=== PATIENT | female | born 1965 | race Caucasian/White ===

== ENCOUNTER 2024-04-20 23:29 | Inpatient (IN) | payer OTHER, SELFPAY ==
[2024-04-20 20:03] VITALS: BP 112/91
[2024-04-20 20:44] LABS: % Basophils 0.9 % (0-2); % Eosinophils 1.6 % (0-6); % Immature Granulocytes 0.3 % (0-0.5); % Lymphocytes 19.7 % (20.5-51.1); % Monocytes 5.8 % (1.7-9.3); % Neutrophils 71.7 % (42.2-75.2); Absolute Basophils 0.1 10^3/uL (0-0.2); Absolute Eosinophils 0.2 10^3/uL (0-0.7); Absolute Lymphocytes 1.8 10^3/uL (1.2-3.4); Absolute Monocytes 0.5 10^3/uL (0.1-0.6); Absolute Neutrophils 6.6 10^3/uL (1.4-6.5); Hematocrit 37.3 % (37.0-47.0); Hemoglobin 13.6 g/dL (12.0-16.0); Mean Corp Hgb Conc. 36.5 g/dL (33.0-37.0); Mean Corpuscular Hgb 30.4 pg (27.0-31.0); Mean Corpuscular Volume 83.3 fL (81.0-99.0); Mean Platelet Volume 9.6 fL (7.4-10.4); Nucleated Red Blood Cells % 0 %; Platelet Count 403 10^3/uL (130-400); Red Blood Cell Count 4.48 10^6/uL (4.20-5.40); Red Cell Dist. Width 12.3 % (11.5-14.5); White Blood Cell Count 9.1 10^3/uL (4.8-10.8)
[2024-04-20 20:56] LABS: ALT (SGPT) 23 U/L (0-35); AST (SGOT) 36 U/L (14-36); Albumin 4.3 g/dl (3.5-5.0); Alkaline Phosphatase 81 U/L (38-126); Blood Urea Nitrogen 7 mg/dl (7-17); Calcium 10.2 mg/dl (8.4-10.2); Carbon Dioxide 15 mmol/L (22-30); Chloride 108 mmol/L (98-107); Glucose 117 mg/dl (70-99); Potassium 3.3 mmol/L (3.5-5.1); Sodium 138 mmol/L (135-145); Total Bilirubin 0.6 mg/dl (0.2-1.3); Total Protein 6.8 g/dl (6.3-8.2); eGFR > 60.00
[2024-04-20 20:57] LABS: Lipase 190 U/L (23-300)
[2024-04-20] MEDS: ZOFRAN 4 MG IV (21:07)
[2024-04-20] MEDS: DILAUDID 0.5 MG IV ×2 (21:10→21:36)
[2024-04-20 21:21] VITALS: BP 162/98
[2024-04-20] MEDS: NSS 500 IV (21:39)
[2024-04-20 22:05] VITALS: BP 128/78
--- NOTE | 2024-04-20 22:13 | ED.GENMED ---
History of Present Illness
General
Chief Complaint: Abdominal Symptoms
Source: patient
Exam Limitations: none
Time Seen by Provider: 04/20/24 20:57
Nursing documentation reviewed up to this point in time: agreed with
History of Present Illness
History of Present Illness:
Patient status post cholecystectomy 5 days ago, with subsequent placement of LUÍS drain, presents to ED secondary to sudden onset of recurrent upper abdominal pain, shortly prior to arrival. Patient was discharged home 2 days ago. Patient was
driving down to [place] from [place] where she had surgery, when she developed abdominal pain, approximate 2 hours into her trip. Patient reports multiple vomiting episodes with pain. Denies fever or chills. Denies trauma. Denies diarrhea.
Review of Systems
Review of Systems
Allergies reviewed?: Yes
All Other Systems: ROS reviewed and negative except as documented in HPI and ROS
Constitutional: Reports no symptoms; Denies fever
Respiratory: Reports no symptoms
Cardiac: Reports no symptoms
ABD/GI: Reports abdominal pain, nausea and vomiting; Denies diarrhea
Musculoskeletal: Reports no symptoms
Skin: Reports no symptoms
Neurological: Reports no symptoms
Phy Exam
Physical Exam
Physical Exam:
Physical Exam
General: moderate painful distress, not acutely ill. afebrile
Head: nc/at. eomi
Neck: supple. no meningeal signs.
Heart: s1/s2 regular rate and rhythm, no murmur. equal radial pulses.
Lungs: no acute respiratory distress. clear bilaterally
Abdomen: normal bowel sounds. multiple well healing surgical scars noted with drain in place over RUQ. mild diffuse abdominal tenderness without distention
Neuro: alert and oriented. no focal neurological deficits
Skin: no rash
Psychiatric: well kept. interactive and cooperative
Extremities: no edema. no calf tenderness.
Course
Orders/Labs/Results
Orders:
Orders
04/20/24 20:09
Urinalysis Reflex To Culture Urgent
Date Specimen was Collected: 04/20/24
Time Specimen was Collected: 20:09
04/20/24 20:13
Complete Blood Count/With Diff Urgent
Comprehensive Metabolic Panel Urgent
Lipase Urgent
04/20/24 20:58
Ondansetron Injectable [Zofran] 4 mg .ROUTE .STK-MED ONE
04/20/24 21:06
Ondansetron Injectable [Zofran] 4 mg IV NOW STA
04/20/24 21:08
HYDROmorphone [Dilaudid] 0.5 mg .ROUTE .STK-MED ONE
04/20/24 21:09
HYDROmorphone [Dilaudid] 0.5 mg IV NOW STA
04/20/24 21:15
CT Abd/pelvis W Iv Cont Urgent
Comment:
Reason For Exam: abdominal pain, s/p cholecystectomy
0.9% Sodium Chloride 500 ml [Nss] 500 ml IV BOLUS
04/20/24 21:35
HYDROmorphone [Dilaudid] 0.5 mg .ROUTE .STK-MED ONE
04/20/24 21:36
HYDROmorphone [Dilaudid] 0.5 mg IV NOW STA
04/20/24 22:45
0.9% Sodium Chloride 1000 ml [Nss] 1,000 ml IV BOLUS
04/20/24 23:00
0.9% Sodium Chloride 500 ml [Nss] 500 ml IV 100 mls/hr
Flush (0.9% Sodium Chloride) [Flush (Nss)] See Dose Instructions IV PER PROTOCOL
04/20/24 23:15
Admit/Transfer Patient As Directed
Co-Sign Provider:
Level of Care: Inpatient admission
Assign to:: Medical/Surgical
Physician / Group: [email or web address]
Diagnosis: Small bowel enteritis associated with partial obstruction vs. post op ileus
Reason for Hospitalization: Small bowel enteritis associated with partial obstruction vbs. post op ileus
Expected length of stay greater than two midnights?: Yes
ELOS- Estimated Length of Stay in days: 3
I certify the patient meets the requirements for IP care: Yes
04/20/24 23:17
Code Status As Directed
Resuscitation Status: Full Code
04/21/24 01:11
0.9% Sodium Chloride 1000 ml [Nss] 1,000 ml IV 100 mls/hr
Albuterol [ProAIR HFA INHALER] 2 puff INH R Q4 PRN
Bisacodyl [Dulcolax] 10 mg RECTAL [id number] PRN
Docusate W/Senna [Senokot-S] 1 tablet PO BIDPRN PRN
HYDROmorphone [Dilaudid] 0.5 mg IV Q4HPRN PRN
Ondansetron Injectable [Zofran] 4 mg IV Q6HPRN PRN
Polyethylene Glycol Powder [Miralax] 17 grams PO DAILYPRN PRN
04/21/24 01:11
Consult Notification Routine
Specialty to Notify: Surgical
SURGICAL CONSULT Routine
Consulting Provider: Loc Marie
Was physician already notified: No
Reason for consult: Small bowel enteritis associated with partial obstruction vs. post op ileus
Activity As Directed
Activity Level: With Assistance
Intake/ Output As Directed
Frequency: Per unit guidelines
Vital Signs As Directed
Frequency: Per unit guidelines
Weight As Directed
Frequency: Daily
DX Deep Vein Thrombosis Video Routine
04/21/24 Breakfast
NPO
Allow oral meds: No
Allow clear liquids: No
NPO with Ice Chips: Yes
Complete Blood Count/No Diff IN AM
Comprehensive Metabolic Panel IN AM
Lipase IN AM
Magnesium IN AM
04/21/24 08:00
Fluticasone/Salmeterol 115/21 [Advair Hfa 115/21 Mcg Inhaler] 2 puff INH R BID
Heparin 5,000 units SC Q12
Abnormal Lab Results
04/20/24
20:13
Plt Count 403 H 10^3/uL
(130-400)
Absolute Neuts (auto) 6.6 H 10^3/uL
(1.4-6.5)
Lymphocytes % 19.7 L %
(20.5-51.1)
Potassium 3.3 L mmol/L
(3.5-5.1)
Chloride 108 H mmol/L
(98-107)
Carbon Dioxide 15 L mmol/L
(22-30)
Glucose 117 H mg/dl
(70-99)
04/20/24 20:13
04/20/24 20:13
Vital Signs
Initial and Last Documented VS:
Initial Vital Signs
Temp Pulse Resp BP Pulse Ox
97.9 F 95 21 112/91 100
04/20/24 20:03 04/20/24 20:03 04/20/24 20:03 04/20/24 20:03 04/20/24 20:03
Last Documented Vital Signs
Temp Pulse Resp BP Pulse Ox
98.6 F 88 18 125/76 98
04/21/24 00:45 04/21/24 00:45 04/21/24 00:45 04/21/24 00:45 04/21/24 00:45
MDM/Problems Addressed
MDM/Problems Addressed:
CT abdomen pelvis report reviewed, concerning for enteritis versus partial bowel obstruction. As patient is continuing to experience symptoms, patient will be admitted for pain control and IV fluids. No indication for NG tube at this time.
*Critical Care Note
Total Time (30-74mins, 75-104mins- exclusive of procedures): Not Applicable
ED Attending Note
-
Portions of this chart may have been created with voice recognition software.� Occasional wrong word or��sound alike� substitutions may have occurred due to the inherent limitations of voice recognition software.
Discharge Plan
Departure
Patient Disposition: Admit
Date of Disposition: 04/20/24
Time of Disposition: 22:46
Presentation/result/management discussed w/ accepting MD/DO: Hospitalist
Discharge Problem:
Abdominal pain
Interventions
Interventions:
*Risk Screen - Suicide Last Done: 04/20/24 20:03
*General Assessment Last Done: 04/20/24 20:03
*Neglect/Abuse Screening Last Done: 04/20/24 20:03
ED- Fall Risk Assessment Last Done: 04/21/24 00:49
*ED COVID-19 Vaccine History Last Done: 04/21/24 00:49
*Nursing Disposition Last Done: 04/21/24 00:49
ZJ-Gjtmex-Mmbqyyjdyr Assessment Last Done: 04/20/24 20:53
Discharge Date and Time
Discharge Date/Time: 04/21/24 00:50
[2024-04-20 23:00] VITALS: BP 107/80
[2024-04-20] MEDS: NSS 1000 IV (23:00)
--- NOTE | 2024-04-20 23:07 | HPS.HSE ---
Family Physician
-
Family Physician: * NONE
Chief Complaint
-
abdominal pain N/V POD 5 cholecystectomy
History of Present Illness
58M POD5 cholecystectomy ( 04/16/24) in [place] with subsequent placement of LUÍS drain.
Evaluation for abrupt onset of abdominal pain with severe N and multiple vomiting
Acute onset since 430pm
Last flatus or BM
last vomiting
No prior abdominal surgery
POD5 cholecystectomy ( 04/16/24) in [place] with subsequent placement of LUÍS drain for gangrenous calculus cholecystitis
Currently on Augmentin for 5 days
ROS
Denies fever or chills. Denies trauma. Denies diarrhea.
Of note:
Patient is visiting [place] for Mother 88 th BD and patient BD tomorrow
Medical History
Past Medical History
Past Medical History: Reports Asthma and Psychiatric (depression/anxiety )
Past Surgical History: Reports None
Social History
Tobacco: Non-smoker
Alcohol: None
Drug: None
Family History
Family History: Not pertinent
Allergies / Home Medications
Allergies reflects when Allergies were last updated in [facility].
Home Medications with original date entered in [facility]
Allergy/Medication List:
Allergies
Allergy/AdvReac Type Severity Reaction Status Date / Time
No Known Allergies Allergy Verified 04/20/24 20:55
Home Medications
albuterol sulfate 90 mcg/actuation aerosol inhaler 2 puff inhalation R Q4 PRN sob/wheezing 04/20/24
amoxicillin 875 mg-potassium clavulanate 125 mg tablet 1 tab PO Q12H 04/20/24
bisacodyl 5 mg tablet,delayed release (Laxative (bisacodyl)) 5 mg PO DAILY PRN constipation 04/20/24
bupropion HCl 300 mg 24 hr tablet, extended release 300 mg PO DAILY 04/20/24
cetirizine 10 mg tablet (Zyrtec) 10 mg PO DAILY 04/20/24
cholecalciferol (vitamin D3) 25 mcg (1,000 unit) tablet 25 mcg PO DAILY 04/20/24
estradiol 10 mcg vaginal tablet (Yuvafem) 10 mcg vaginal .2X WEEKLY 04/20/24
fluticasone 250 mcg-salmeterol 50 mcg/dose blistr powdr for inhalation 1 inh inhalation R BID 04/20/24
liothyronine 5 mcg tablet 5 mcg PO DAILY 04/20/24
multivitamin 1 tab PO DAILY 04/20/24
polyethylene glycol 3350 17 gram/dose oral powder 17 g PO DAILY 04/20/24
progesterone micronized 100 mg capsule 200 mg PO DAILY 04/20/24
semaglutide (weight loss) 2.4 mg/0.75 mL subcutaneous pen injector (Wegovy) 2.4 mg SC .WEEKLY *ON HOLD* 04/20/24
trazodone 50 mg tablet 50 mg PO HS 04/20/24
venlafaxine 75 mg capsule,extended release 24 hr 75 mg PO DAILY 04/20/24
Review of Systems
-
Constitutional: Reports No Symptoms
EENT: Reports No Symptoms
Respiratory: Reports No Symptoms
Cardiac: Reports No Symptoms
Abdomen/GI: Reports See HPI, Abdominal Pain, Nausea and Vomiting
: Reports No Symptoms
Musculoskeletal: Reports No Symptoms
Skin: Reports No Symptoms
Neurological: Reports No Symptoms
Endocrine: Reports No Symptoms
Hematologic/Lymphatic: Reports No Symptoms
Psych: Reports No Symptoms
Physical Exam
Vital Signs
Vital Signs
Temp Pulse Resp BP Pulse Ox
97.9 F 95 21 112/91 100
04/20/24 20:03 04/20/24 20:03 04/20/24 20:03 04/20/24 20:03 04/20/24 20:03
Physical Exam
General: Conversant and Appears in Distress (moderate abdominal pain ); No Appears Chronically Ill
HEENT: NormoCephalic and Anicteric
Respiratory: Clear; No Wheezes, Rales or Rhonchi
Cardiac: S1/S2 and Regular Rhythm; No Tachycardia or Murmur
Breast: Deferred by me
GI: Tender (Mild diffuse abdominal tenderness without distention) and Other (multiple well healing surgical scars noted with drain in place over RUQ. )
Rectal: Deferred by Provider
Genito-urinary: Deferred by me
Musculoskeletal: No Edema
Skin: Warm and Dry
Neuro: AO x 3
Psych: Calm
Laboratory Results
-
04/20/24 20:13
04/20/24 20:13
Laboratory Results
Total Bilirubin 0.6 mg/dl (0.2-1.3) 04/20/24 20:13
AST 36 U/L (14-36) 04/20/24 20:13
ALT 23 U/L (0-35) 04/20/24 20:13
Alkaline Phosphatase 81 U/L (38-126) 04/20/24 20:13
Lipase 190 U/L (23-300) 04/20/24 20:13
Data Reviewed
-
CT Scan: Report Reviewed by me
Lab Data: Labs Reviewed by me
Impression/Plan
-
Reviewed VS: afebrile HR 95 BP 112/91 POx 100
Data
Nl WCC
hgb 13.6
Plt 403
K 3.3
Cl 108
CO2 15
Cr 0.7
nl eGFR
nl LFTx
Pending UA
CT Abd/pelvis W Iv Cont:
1).There are mildly dilated loops of fluid-filled small bowel measuring up to 3.2 cm down to an area of small bowel wall thickening in the mid abdomen best seen on axial image 33, sagittal image 44 and coronal image 24. This may be a focal area of
small bowel enteritis associated with partial obstruction
2).There is cholecystectomy with a 3 x 1 cm fluid collection at the surgical bed which may be seroma or biloma
3). There is moderate ascites in the pelvis.
4). There is 2 cm hiatal hernia
5). Degenerative disc disease at L4-5
NO PRIOR admission
ASSESSMENT & PLAN
Small bowel enteritis associated with partial obstruction
Associated multiple vomiting and severe nausea and water diarrhea
POD5 cholecystectomy with a 3 x 1 cm fluid collection at the surgical bed which may be seroma or biloma
Unremarkable LFTs and Lipase
DDX: ANGELIQUE vs. C Diff diarrhea complicated with ileus vs. post op ileus
- NPO and IVF
- PRN narcotic analgesia
- switch to IV Unasyn in place of Augmentin
- GS consult
HX Asthma/ COPD
HX Depression/ anxiety
- Pending Rx reconciliation
Patient is visiting [place] for Mother 88 th BD and patient BD tomorrow
DVT Px: SQH
Code: full code
IP MS
[2024-04-21] VITALS: BP 113/60
--- NOTE | 2024-04-21 00:40 | PTCARENOTE ---
Pt admitted to 321 from ED. AAOx3, Ambulatory. VSS. Abdominal incisions DUNIA /closed with glue, R LUÍS drain site C/D/I. pt c/o /10 lower abdominal discomfort, but doesn't feel need for pain medicine. Plan of care discussed. Call pruitt within reach.
[2024-04-21 00:45] VITALS: BP 125/76; BMI 21.8
[2024-04-21] MEDS: NSS 1000 IV ×2 (01:19→12:54)
[2024-04-21] MEDS: UNASYN IV ×4 (01:27→20:24)
[2024-04-21 06:00] VITALS: BMI 21.8
[2024-04-21 06:48] LABS: Hematocrit 32.6 % (37.0-47.0); Hemoglobin 10.9 g/dL (12.0-16.0); Mean Corp Hgb Conc. 33.4 g/dL (33.0-37.0); Mean Corpuscular Hgb 30.4 pg (27.0-31.0); Mean Corpuscular Volume 90.8 fL (81.0-99.0); Red Blood Cell Count 3.59 10^6/uL (4.20-5.40); Red Cell Dist. Width 12.8 % (11.5-14.5); White Blood Cell Count 8.5 10^3/uL (4.8-10.8)
[2024-04-21] MEDS: HEPARIN 5000 UNITS SC ×2 (07:19→20:25)
[2024-04-21 07:27] LABS: ALT (SGPT) 16 U/L (0-35); AST (SGOT) 27 U/L (14-36); Alkaline Phosphatase 53 U/L (38-126); Blood Urea Nitrogen 6 mg/dl (7-17); Calcium 8.5 mg/dl (8.4-10.2); Carbon Dioxide 24 mmol/L (22-30); Chloride 111 mmol/L (98-107); Estimated Creatinine Clearance 89 ml/min; Glucose 98 mg/dl (70-99); Lipase 86 U/L (23-300); Potassium 4.1 mmol/L (3.5-5.1); Sodium 141 mmol/L (135-145); Total Bilirubin 0.4 mg/dl (0.2-1.3); Total Protein 5.3 g/dl (6.3-8.2); eGFR > 60.00
[2024-04-21 07:30] VITALS: BP 120/77
[2024-04-21] MEDS: ADVAIR HFA 115/21 MCG INHALER 2 PUFF INH ×2 (07:41→18:08)
[2024-04-21 07:48] LABS: Mean Platelet Volume 9.5 fL (7.4-10.4); Platelet Count 289 10^3/uL (130-400)
--- NOTE | 2024-04-21 09:09 | CON.GS ---
Addendum entered and electronically signed by Mark Neal MD 04/21/24 10:19:
Patient seen and examined with surgical nurse practitioner. Agree with documented history and physical.
HPI: 59-year-old female presenting with acute onset of abdominal pain, nausea vomiting followed by diarrhea. She recently underwent laparoscopic cholecystectomy 5 days ago. She was discharged home on the and at that time feeling well. While
traveling to [place] with her sister she had a chicken salad sandwich which shortly after resulted in crampy abdominal pain nausea vomiting and sweats. She came to the emergency department for evaluation. She feels better this a.m. Nausea
resolved. Appetite returning. She has had bowel movement this a.m. LUÍS remains in place and she says it has not changed in character.
AFVSS
ABD: Soft, nondistended, minimal tenderness at incision sites and right upper quadrant. No rebound rigidity or guarding. Surgical sites with glue dressings clean. LUÍS with light serosanguineous fluid. Nonpurulent and nonbilious.
Laboratory testing reviewed and white blood cell count is normal as well as platelet count. Chemistries are unremarkable including all of her liver function profile testing and lipase.
CT abdomen pelvis imaging personally reviewed. There is some free fluid around the lower abdomen and pelvis but no organizing fluid collections. Typical postoperative mild inflammatory changes around the surgical field. Surgical Gagandeep drain
within the abdominal cavity.
Assessment/plan: 59-year-old female with acute episode abdominal pain nausea vomiting chills after recent cholecystectomy.
No clinical or radiographic signs of bile leak. LUÍS drain is nonbilious and light serous fluid. No infectious signs or symptoms. Abdominal examination benign with minimal incisional tenderness within expectations of recent surgery. Clinically
resolving/resolved symptoms as well.
No further imaging or testing recommended at this time.
Would start on clear liquid diet and advance as tolerated to low-fat.
Probable discharge within 24 hours
Original Note:
Medical History
-
Chief Complaint: n/v
History of Present Illness:
Ms Sandoval is a 59 yo female who was admitted in [facility] for cholecystitis last weekend with cholecystectomy preformed on April 16 and LUÍS drain left in place post operatively. She was discharged to home on 04/18 and notes she was doing relatively well.
She had no nausea and good post op pain control and was eating a light diet. She had intermittent diarrhea since her hospitalization with an episode this morning. She was tolerating light foods and decided to travel down to [place] yesterday to
visit family with her sister driving as she has a 59th birthday today and her mother's 80th is tomorrow. She had a homemade chicken salad sandwich in the car and initially tolerated it well but then began having worsening abdominal pain with nausea
and vomiting and sweats. She presented later that night to the ER for evaluation. She is currently denying nausea. Incisional soreness is present but pain from yesterday is resolved. LUÍS drain in place with non-bilious light SSF noted. Her
incisions are clear and with intact glue.
Past Medical History
Past Medical History: Asthma and Psychiatric (anxiety/depression)
Past Surgical History: Cholecystectomy (04/16 in [place] with LUÍS placement)
Social History
Tobacco: Non-Smoker
Alcohol: None
Family History
Family History: Reviewed & Not Pertinent
Allergies / Home Medications
Allergy/AdvReac Type Severity Reaction Status Date / Time
No Known Allergies Allergy Verified 04/20/24 20:55
�Medication �Instructions �Recorded �Confirmed �Type
albuterol sulfate 90 mcg/actuation 2 puff inhalation R Q4 PRN 04/20/24 04/20/24 History
aerosol inhaler sob/wheezing
amoxicillin 875 mg-potassium 1 tab PO Q12H 04/20/24 04/20/24 History
clavulanate 125 mg tablet
bisacodyl 5 mg tablet,delayed 5 mg PO DAILY PRN constipation 04/20/24 04/20/24 History
release (Laxative (bisacodyl))
bupropion HCl 300 mg 24 hr tablet, 300 mg PO DAILY 04/20/24 04/20/24 History
extended release
cetirizine 10 mg tablet (Zyrtec) 10 mg PO DAILY 04/20/24 04/20/24 History
cholecalciferol (vitamin D3) 25 25 mcg PO DAILY 04/20/24 04/20/24 History
mcg (1,000 unit) tablet
estradiol 10 mcg vaginal tablet 10 mcg vaginal .2X WEEKLY 04/20/24 04/20/24 History
(Yuvafem)
fluticasone 250 mcg-salmeterol 50 1 inh inhalation R BID 04/20/24 04/20/24 History
mcg/dose blistr powdr for
inhalation
liothyronine 5 mcg tablet 5 mcg PO DAILY 04/20/24 04/20/24 History
multivitamin 1 tab PO DAILY 04/20/24 04/20/24 History
polyethylene glycol 3350 17 17 g PO DAILY 04/20/24 04/20/24 History
gram/dose oral powder
progesterone micronized 100 mg 200 mg PO DAILY 04/20/24 04/20/24 History
capsule
semaglutide (weight loss) 2.4 2.4 mg SC .WEEKLY *ON HOLD* 04/20/24 04/20/24 History
mg/0.75 mL subcutaneous pen
injector (Wegovy)
trazodone 50 mg tablet 50 mg PO HS 04/20/24 04/20/24 History
venlafaxine 75 mg capsule,extended 75 mg PO DAILY 04/20/24 04/20/24 History
release 24 hr
Review of Systems
-
History Source: Patient
All other systems: Negative unless noted
A 10 point review of systems was completed, and was negative except as per HPI.
Physical Exam
Vital Signs
Temp Pulse Resp BP Pulse Ox
98.6 F 68 16 120/77 97
04/21/24 07:30 04/21/24 07:47 04/21/24 07:47 04/21/24 07:30 04/21/24 07:47
04/20/24 04/21/24 04/22/24
06:59 06:59 06:59
Actual Weight 66.877 kg
Body Mass Index (BMI) 21.8
Lab Results
04/21/24 06:18
04/21/24 06:18
WBC 8.5 10^3/uL (4.8-10.8) 04/21/24 06:18
Hgb 10.9 g/dL (12.0-16.0) L 04/21/24 06:18
Hct 32.6 % (37.0-47.0) L 04/21/24 06:18
Plt Count 289 10^3/uL (130-400) D 04/21/24 06:18
Abs Immat Gran (auto) 0.0 10^3/uL (0-0.05) 04/20/24 20:13
Neutrophils % 71.7 % (42.2-75.2) 04/20/24 20:13
Physical Exam
General: Well Developed and Well Nourished
HEENT: Moist Mucous Membranes
Respiratory: Non Labored Respirations
GI: Soft, Non Distended, Tender (mild expected incisional tenderness, [employer] F[employer]) and Other (LUÍS with SSF (nonbilious))
Skin: Warm and Dry
Neuro: Awake, Alert and AO x 3
Psych: Calm
Data Reviewed
-
CT Scan: Image Personally Visualized and interpreted, Report Reviewed by me, Discussed with Physician and Discussed with Patient
Labs: Labs Reviewed by me, Discussed with Physician and Discussed with Patient
Old Records: Reviewed
Assessment / Plan
-
59 yo female who is POD #5 lap janet in [place] presenting with n/v/abdominal pain while travelling. Pain and nausea currently resolved. LUÍS present and draining well with light mostly serous drainage without bilious outputs noted. Incisions healing well.
LFT's wnl. No leukocytosis or fevers. H/H with drift down, likely secondary to equilibration/hemodilution with IVF resuscitation overnight. No active bleeding noted. CT imaging reviewed and does show some reactive small bowel enteritis and fluid
within the surgical bed without formation of organized abscess. Has been on Augmentin post op.
No plans for further surgical intervention
--Advance to clear liquid diet; if tolerates, tentatively advance to LFD this evening
--Continue LUÍS drain and follow outputs
--Analgesics/antiemetics as tolerated
--Continue IVF as per primary team
--Continue ABX, would resume PO Augmentin upon d/c to complete course
--OP follow up with primary surgeon once she returns to her home state of [place]
[2024-04-21] MEDS: ZOFRAN 4 MG IV ×2 (10:06→20:25)
[2024-04-21] MEDS: DILAUDID 0.5 MG IV (10:50)
--- NOTE | 2024-04-21 11:24 | W.PN.HOSP.TC ---
Today's Communication/Plan
-
see outlined plan
Assessment / Plan
Assessment / Plan
Assessment:
Small bowel enteritis associated with partial SBO
- CT: mildly dilated loops of fluid-filled small bowel measuring up to 3.2 cm down to an area of small bowel wall thickening in the mid abdomen best seen on axial image 33, sagittal image 44 and coronal image 24. This may be a focal area of small
bowel enteritis associated with partial obstruction
- possibly related to food ingestion vs viral vs other
- symptomatic control with IVF, pain meds, anti-emetics
- diet; clears, ADAT to LFD
- continue Unasyn day 1
- stool studies pending
Recent acute cholecystitis s/p lap janet 04/16 in [place]
with post-op seroma with LUÍS drain in place
- GS evaluated, no role for drain manipulation or surgery
- continue to follow LUÍS drain outputs
- OP f/u with primary surgeon in [place] upon return
HX Asthma/COPD
- prn nebs/Fluticasone
HX Depression/anxiety
- continue Venlafaxine/Trazodone/Bupropion
Hypothyroidism on replacement
DVT ppx: [place] heparin
Code: Full
Anticipated Discharge: > 48 hours
Subjective/Interval History
-
Date of Service: April 21, 2024
reporting abd pain, cramps, nausea
feels a BM coming
Objective Data
-
Labs:
Laboratory Results
04/21/24
06:18
WBC 8.5
Hgb 10.9 L
Hct 32.6 L
Plt Count 289 D
Sodium 141
Potassium 4.1
Chloride 111 H
Carbon Dioxide 24
BUN 6 L
Creatinine 0.7
Glucose 98
Calcium 8.5 D
Total Bilirubin 0.4
AST 27
ALT 16
Alkaline Phosphatase 53
Vital Signs:
Vital Signs
Temp Pulse Resp BP Pulse Ox
98.6 F 68 16 120/77 97
04/21/24 07:30 04/21/24 07:47 04/21/24 07:47 04/21/24 07:30 04/21/24 07:47
I&O
04/20/24 04/21/24 04/22/24
06:59 06:59 06:59
Intake Total 850 / 850
Output Total 75 / 75
Balance 775 / 775
Physical Exam
-
General: Appears in Distress (nausea/pain)
HEENT: Normocephalic and Atraumatic
Respiratory: Negative Wheezes
Cardiac: Regular Rhythm
GI: Soft, Nontender and Nondistended
Musculoskeletal: No Edema
Neuro: AO x 3
Psych: Calm
Data Reviewed
-
Total Time Spent with Patient (in minutes): 42
Labs: Labs Reviewed by me
[2024-04-21 12:02] LABS: Urine Albumin Trace (Neg - Trace); Urine Bilirubin Negative (Negative); Urine Character Clear (Clear); Urine Color Yellow; Urine Glucose Negative (Negative); Urine Ketone 2+ (Negative); Urine Leukocyte Trace (Negative); Urine Nitrite Negative (Negative); Urine Occult Blood Negative (Negative); Urine Urobilinogen Negative (Neg - 1+)
[2024-04-21 12:37] LABS: Urine Amorphous Seen
[2024-04-21 12:38] LABS: Urine Bacteria Many (Negative); Urine Red Blood Cell 0-2 /HPF (0-2)
[2024-04-21] MEDS: COMPAZINE 5 MG IV (12:56)
[2024-04-21] MEDS: FLUSH (NSS) 2 FLUSH IV (12:56)
[2024-04-21] MEDS: DILAUDID 1 MG IV ×2 (14:11→20:24)
[2024-04-21] MEDS: NSS IV (15:46)
[2024-04-21 15:59] VITALS: BP 102/56
[2024-04-21 20:20] VITALS: BP 110/62
[2024-04-21 23:00] VITALS: BP 101/58
[2024-04-22] MEDS: NSS 1000 IV (00:29)
[2024-04-22] MEDS: UNASYN IV ×3 (02:04→14:21)
[2024-04-22 06:00] VITALS: BMI 21.8
[2024-04-22] MEDS: HEPARIN 5000 UNITS SC (07:51)
[2024-04-22 08:00] VITALS: BP 131/83
[2024-04-22] MEDS: ADVAIR HFA 115/21 MCG INHALER 2 PUFF INH (08:03)
[2024-04-22 08:14] LABS: Hematocrit 31.7 % (37.0-47.0); Hemoglobin 10.8 g/dL (12.0-16.0); Mean Corp Hgb Conc. 34.1 g/dL (33.0-37.0); Mean Corpuscular Hgb 30.6 pg (27.0-31.0); Mean Corpuscular Volume 89.8 fL (81.0-99.0); Mean Platelet Volume 9.5 fL (7.4-10.4); Platelet Count 280 10^3/uL (130-400); Red Blood Cell Count 3.53 10^6/uL (4.20-5.40); White Blood Cell Count 6.8 10^3/uL (4.8-10.8)
[2024-04-22 08:26] LABS: Blood Urea Nitrogen 4 mg/dl (7-17); Calcium 8.7 mg/dl (8.4-10.2); Carbon Dioxide 27 mmol/L (22-30); Chloride 108 mmol/L (98-107); Estimated Creatinine Clearance 89 ml/min; Glucose 86 mg/dl (70-99); Potassium 3.4 mmol/L (3.5-5.1); Sodium 139 mmol/L (135-145); eGFR > 60.00
--- NOTE | 2024-04-22 09:10 | PTCARENOTE ---
PT alert oriented x3 Pt able to make needs known, Pt denies any pain at this time. PT not identified as a fall risk but was educated on wearing non slip socks and changing position slowing. PT was encouraged to ambulate in hallways. This nurse has
observed her walking and she is strong steady and safe walking with IV pole. Skin is pale warm dry. 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 IV in right AC infusing IV NSS at
100 as per MD order, site no signs of phlebitis or infiltrate. IV abx hung wtih AM medications. VSS afebrile, Right eye prosthesis out . HRR +PP no edema, PT denies any CP, palpitations or SOB. Lungs CTA in all ricketts no cough, no SOB or GOODMAN. ABd
soft tender hypoactive BS, non distended, no nausea, vomiting or diarrhea at this time, After walking in halls pt stated she heard and felt some gurgling going on in her abdomen. PT voids in bathroom. PT received SQ heparin as per mD order.
LAbs wtih K of 3.1, notified and pending orders
--- NOTE | 2024-04-22 12:10 | W.PN.HOSP.TC ---
Today's Communication/Plan
-
dc home if tolerates diet
Assessment / Plan
Assessment / Plan
Assessment:
Small bowel enteritis associated with partial SBO
- CT: mildly dilated loops of fluid-filled small bowel measuring up to 3.2 cm down to an area of small bowel wall thickening in the mid abdomen best seen on axial image 33, sagittal image 44 and coronal image 24. This may be a focal area of small
bowel enteritis associated with partial obstruction
- possibly related to food ingestion vs viral vs other
- symptomatic control with IVF, pain meds, anti-emetics
- diet; Fulls, advanced to LFD if tolerated. If all goes well DC home today
- discharge on Augmentin x 10 days
Recent acute cholecystitis s/p lap janet 04/16 in [place]
with post-op seroma with LUÍS drain in place
- GS evaluated, no role for drain manipulation or surgery
- continue to follow LUÍS drain outputs
- OP f/u with primary surgeon in [place] upon return in early May
HX Asthma/COPD
- prn nebs/Fluticasone
HX Depression/anxiety
- continue Venlafaxine/Trazodone/Bupropion
Hypothyroidism on replacement
DVT ppx: SC heparin
Code: Full
More than 30 minutes spent in discharge including
Final examination of the patient
Summarizing hospital stay
Instructions for continuing care to all relevant caregivers
Preparation of discharge records, prescriptions, and referral forms
Total time spent (in minutes): 41
Anticipated Discharge: Today
Subjective/Interval History
-
Date of Service: April 22, 2024
N/V resolved
passing gas
no abd pain
Objective Data
-
Labs:
Laboratory Results
04/22/24
07:40
WBC 6.8
Hgb 10.8 L
Hct 31.7 L
Plt Count 280
Sodium 139
Potassium 3.4 L
Chloride 108 H
Carbon Dioxide 27
BUN 4 L
Creatinine 0.7
Glucose 86
Calcium 8.7
Vital Signs:
Vital Signs
Temp Pulse Resp BP Pulse Ox
98.3 F 85 16 131/83 98
04/22/24 08:00 04/22/24 08:00 04/22/24 08:00 04/22/24 08:00 04/22/24 08:00
I&O
04/21/24 04/22/24 04/23/24
06:59 06:59 06:59
Intake Total 850 / 850 720 / 720
Output Total 75 / 75 485 / 485
Balance 775 / 775 235 / 235
Physical Exam
-
General: No Apparent Distress
HEENT: Normocephalic and Atraumatic
Respiratory: Negative Wheezes
Cardiac: Regular Rhythm and S1/S2
GI: Soft and Nontender
Musculoskeletal: No Edema
Skin: Ulcers
Neuro: AO x 3
Data Reviewed
-
Total Time Spent with Patient (in minutes): 41
Labs: Labs Reviewed by me
--- NOTE | 2024-04-22 12:17 | W.DS.TRANS ---
DC Summary - [employer]
-
Discharge Instructions:
Discharge Diagnosis/Procedures pSBO and small bowel enteritis likely viral or
related to food, recent GB surgery with drain
Diet Low Fat
Activity As tolerated
Bathing Restrictions as outlined by your [place] Surgeon
Instructions:
Stand-Alone Forms:
Changes to Home Medications: No
Discharge Medications:
DC Medications w/original date entered in [employer]
albuterol sulfate 90 mcg/actuation aerosol inhaler 2 puff inhalation R Q4 PRN sob/wheezing 04/20/24
bisacodyl 5 mg tablet,delayed release (Laxative (bisacodyl)) 5 mg PO DAILY PRN constipation 04/20/24
bupropion HCl 300 mg 24 hr tablet, extended release 300 mg PO DAILY 04/20/24
cetirizine 10 mg tablet (Zyrtec) 10 mg PO DAILY 04/20/24
cholecalciferol (vitamin D3) 25 mcg (1,000 unit) tablet 25 mcg PO DAILY 04/20/24
estradiol 10 mcg vaginal tablet (Yuvafem) 10 mcg vaginal .2X WEEKLY 04/20/24
fluticasone 250 mcg-salmeterol 50 mcg/dose blistr powdr for inhalation 1 inh inhalation R BID 04/20/24
liothyronine 5 mcg tablet 5 mcg PO DAILY 04/20/24
multivitamin 1 tab PO DAILY 04/20/24
polyethylene glycol 3350 17 gram/dose oral powder 17 g PO DAILY 04/20/24
progesterone micronized 100 mg capsule 200 mg PO DAILY 04/20/24
semaglutide (weight loss) 2.4 mg/0.75 mL subcutaneous pen injector (Wegovy) 2.4 mg SC .WEEKLY *ON HOLD* 04/20/24
trazodone 50 mg tablet 50 mg PO HS 04/20/24
venlafaxine 75 mg capsule,extended release 24 hr 75 mg PO DAILY 04/20/24
amoxicillin 875 mg-potassium clavulanate 125 mg tablet 1 tab PO Q12H #20 tabs 04/22/24
ondansetron 4 mg disintegrating tablet 4 mg PO Q6H PRN nausea and vomiting #20 tabs 04/22/24
Home Medication Changes
Pending Results: No
Total time spent discharging patient (in min): 42
--- NOTE | 2024-04-22 12:36 | CM ---
Met with patient at bedside; initial assessment completed
Pharmacy verified: [facility], [place]
s/p cholecystectomy 04/16/24; patient has been managing LUÍS drain. Patient is in the area visiting family; home is a one floor [place]
Patient lives alone in a ground floor apartment in [place], [place]; no stairs
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
SNF/Home Health utilization history: none
Transport: family or friend will provide ride home
Plan: discharge to home today if she tolerates diet
[2024-04-22] MEDS: NSS IV (12:54)
--- NOTE | 2024-04-22 13:51 | W.PN.GS2 ---
Addendum entered and electronically signed by Herman Ang MD 04/22/24 15:36:
I saw and examined the patient.
The STOCK COUNTER's note was reviewed and I agree with the note.
Comment:
Tolerating diet without pain. Having bowel function.
AFVSS, ABD S/ND/NT, no R/G
WBC 6.8
� Continue low-fat diet
� Continue pain control
� Continue antibiotics per primary surgeon from [place]
Dispo�okay for DC from surgery standpoint; follow-up with surgeon in [place]
Original Note:
Today's Communication / Plan
-
Dispo planning
Assessment / Plan
-
59-year-old female with acute episode abdominal pain nausea vomiting chills after recent cholecystectomy.
No clinical or radiographic signs of bile leak. LUÍS drain is nonbilious and light serous fluid. No infectious signs or symptoms.
AFVSS
Tolerating diet
Clear from surgical standpoint for d/c with LUÍS in place
Would continue PO ABX from her primary surgeon
OP follow up with primary surgeon as previously scheduled
Subjective Data
-
Date of Service: April 22, 2024
Patient seen and examined at bedside with Dr. Ang. Tolerated an vietnamese muffin, cereal and fruit prior to exam without return of nausea or abdominal discomfort. Denies f/c. Overall doing better.
Objective Data
-
Intake and Output
04/21/24 04/22/24 04/23/24
06:59 06:59 06:59
Intake Total 850 / 850 720 / 720
Output Total 75 / 75 485 / 485
Balance 775 / 775 235 / 235
Intake:
Oral fluids 360 / 360
Amount of oral supplement(s) 120 / 120
consumed
IV fluids (Total) 650 / 650
IV piggybacks 200 / 200 240 / 240
Output:
Drain Output (Total) 485 / 485
Right Lower Abdomen Chris- 485 / 485
Purcell A
Other:
Number of approximated MODERATE 2
amounts of urine
Number of approximated LARGE 1
amounts of urine
Number of immeasurable emeses? 2
Vital Signs
Temp Pulse Resp BP Pulse Ox
98.3 F 85 16 131/83 98
04/22/24 08:00 04/22/24 08:00 04/22/24 08:00 04/22/24 08:00 04/22/24 08:00
Lab Results
04/22/24 07:40
04/22/24 07:40
Calcium 8.7 mg/dl (8.4-10.2) 04/22/24 07:40
Magnesium 2.0 mg/dl (1.6-2.3) 04/21/24 06:18
Total Bilirubin 0.4 mg/dl (0.2-1.3) 04/21/24 06:18
AST 27 U/L (14-36) 04/21/24 06:18
ALT 16 U/L (0-35) 04/21/24 06:18
Alkaline Phosphatase 53 U/L (38-126) 04/21/24 06:18
Total Protein 5.3 g/dl (6.3-8.2) L D 04/21/24 06:18
Albumin 3.0 g/dl (3.5-5.0) L 04/21/24 06:18
Physical Exam
-
NAD, Ox3
ABD soft, mild incisional tenderness, ND, LUÍS with serous fluid
Incisions healing well with intact glue
[2024-04-22 14:45] VITALS: BP 110/65
--- NOTE | 2024-04-22 15:29 | PTCARENOTE ---
PT received DC instructions. PT verbalized an understanding and did not have any questions. Prior to DC pt ate 100% of lunch and tolerated it fine without any Nausea or vomiting. PT stated she has flatulance . pt ambulated to car with children at
bedside
== END 2024-04-22 16:05 | disposition home or self-care (01) | DRG 390 ==
LOC: 3 WEST ACU 23:29
PROVIDERS: Emergency Medicine; ADMITTING PHYSICIAN Internal Medicine; ATTENDING PHYSICIAN Internal Medicine; EMERGENCY PHYSICIAN Emergency Medicine; OTHER PHYSICIAN Surgery
DX: K56.600 Partial intestinal obstruction, unspecified as to cause (principal); A08.4 Viral intestinal infection, unspecified; E03.9 Hypothyroidism, unspecified; F32.A Depression, unspecified; F41.9 Anxiety disorder, unspecified
CPT/HCPCS: 74177; 80048; 80053; 81003; 81015; 83690; 83735; 85025; 85027; 87086; 94640; 96361; 96374; 96375; 99285; Q9967

== ENCOUNTER 2024-04-24 03:33 | Inpatient (IN) | payer OTHER, SELFPAY ==
[2024-04-23 22:51] VITALS: BP 171/106
--- NOTE | 2024-04-23 23:06 | ED.GENMED ---
History of Present Illness
General
Chief Complaint: Abdominal Pain
Source: patient and family (Sister)
Exam Limitations: none
Time Seen by Provider: 04/23/24 22:55
History of Present Illness
History of Present Illness:
This is a 59 year old female that comes in with c/o abd pain and vomiting. Sister state that last Wednesday she had had Gallbladder out in [place]. States that she was released on Wednesday and she brought her here to she could take care of her. States
that on she started with vomiting and she brought her here. patient had a CT of the abd on the . States that she was discharged yesterday. States that she had no pain last night and then today she started with abd pain and vomiting.
States that she has been on a low fat diet and she had a very small BM before coming. States that she has some dizziness with the abd pain and vomiting. Denies any fever, chils, chest pain, SOB, diarrhea, headache, urinary burning.
Past History
Past History
ED Past Medical History: Asthma, Psychiatric (Depression) and Other (UTI )
ED Past Surgical History: Cholecystectomy, Gynecological (Uterine ablation, Tubal, ), Orthopedic (Bilateral shoulder rotator cuff, right wrist surgery, ), Urological (Urethra sling) and Other (Right eye prosthetic)
Social History
Tobacco: Non-smoker
Alcohol: Occasional
Personal:
Living: with family (living with sister at this time)
Review of Systems
Review of Systems
All Other Systems: ROS reviewed and negative except as documented in HPI and ROS
Constitutional: Reports no symptoms; Denies fever or chills
EENT: Reports no symptoms
Respiratory: Reports no symptoms; Denies cough or trouble breathing
Cardiac: Reports no symptoms; Denies chest pain
ABD/GI: Reports abdominal pain, nausea and vomiting; Denies diarrhea
: Reports no symptoms; Denies dysuria, frequency or urgency
Musculoskeletal: Reports no symptoms
Skin: Reports no symptoms
Neurological: Reports dizzy; Denies headache
Psychiatric: Reports no symptoms
Phy Exam
General Physical Exam
General Presentation: moderate distress
General age: appears stated age
General Skin: warm and dry
General Habitus: normal
General Mental: alert
General Hydration: dry mucous membranes
ENT Exam
ENT Exam: TM's normal, pharynx normal and neck supple
Eye Exam
Eye Exam: other (right eye prosthesis)
Cardiovascular Exam
Cardiovascular Exam: regular rate/rhythm, no edema, no murmur and normal peripheral pulses
Pulmonary Exam
Pulmonary Exam: lungs clear, no respiratory distress, no rales, chest non tender, no crackles, no rhonchi, no wheezing and no cough
Gastrointestinal Exam
Gastrointestinal Exam: soft, no organomegaly, no pulsatile mass, non distended, tender (Slight generalized tenderness with palpation) and other (Hypoactive bowel sounds, Right upper abd LUÍS drain noted)
Musculoskeletal Exam
Musculoskeletal Exam: full ROM and no edema
Skin Exam
Skin Exam: normal color, warm/dry, no rash and no petechia
Psychiatric Exam
Psychiatric Exam: normal mood/affect
Course
Orders/Labs/Results
Orders:
Orders
04/23/24 23:05
Urinalysis Reflex To Culture Urgent
0.9% Sodium Chloride 1000 ml [Nss] 1,000 ml IV BOLUS
HYDROmorphone [Dilaudid] 1 mg IV NOW STA
Ondansetron Injectable [Zofran] 4 mg IV NOW STA
04/23/24 23:12
Abdomen Xray - 1 View [CR Abdomen - 1 View] Urgent
Comment:
Reason For Exam: abd pain
04/23/24 23:17
Complete Blood Count/With Diff Urgent
Comprehensive Metabolic Panel Urgent
Lipase Urgent
04/23/24 23:44
Lactic Acid Urgent
Blood Culture Q30M
GRICELDA Source: Blood/Venous
Specimen Description:
Blood Culture Q30M
GRICELDA Source: Blood/Venous
Specimen Description:
Abnormal Lab Results
04/23/24 04/23/24
23:17 23:44
Plt Count 407 H D 10^3/uL
(130-400)
Abs Immat Gran (auto) 0.1 H 10^3/uL
(0-0.05)
Absolute Neuts (auto) 8.1 H 10^3/uL
(1.4-6.5)
Neutrophils % 76.7 H %
(42.2-75.2)
Lymphocytes % 16.7 L %
(20.5-51.1)
Potassium 3.4 L mmol/L
(3.5-5.1)
Carbon Dioxide 18 L mmol/L
(22-30)
Glucose 135 H mg/dl
(70-99)
Lactic Acid 2.1 H mmol/L
(0.7-2.0)
04/23/24 23:17
04/23/24 23:17
Plt slightly elevated. carbon Dioxide low. Glucose nonfasting. lactic acid slightly elevated. Lipase normal at 159
Vital Signs
Initial and Last Documented VS:
Initial Vital Signs
Temp Pulse Resp BP Pulse Ox
97.7 F 84 28 171/106 100
04/23/24 22:51 04/23/24 22:51 04/23/24 22:51 04/23/24 22:51 04/23/24 22:51
Last Documented Vital Signs
Temp Pulse Resp BP Pulse Ox
97.7 F 84 28 171/106 100
04/23/24 22:51 04/23/24 22:51 04/23/24 22:51 04/23/24 22:51 04/23/24 22:51
MDM/Problems Addressed
Differential Diagnosis Includes:
Constipation, bowel obstruction, Abd abscess
MDM/Problems Addressed:
This is a 59 year old female that comes in with c/o abd pain and vomiting. Patient was just discharged form the hospital yesterday. Patient had her gallbladder removed last Wednesday in [place].
will check lab, give IV fluids, medicate for pain and vomiting
Back into see patient and sister. Patient is resting at this time after the pain medication and Zofran. will admit patient for further evaluation. Explained that she may be discharged tomorrow if they can get her pain and vomiting under control.
Hospitalist notified.
Chronic conditions affecting care: Previous abdomnial surgery
Acute Exacerbation and/or Progression of Chronic Illness: Previous abdomnial surgery
*Pulse Oximetry
Patient hypoxic: no
*EKG
Interpreted by ED Provider?: NA
Rate: EKG- N/A
*[employer] Assistant Football Coach Interpretation
Rate: [employer] Assistant Football Coach- N/A
*Critical Care Note
Total Time (30-74mins, 75-104mins- exclusive of procedures): Not Applicable
ED Attending Note
-
Portions of this chart may have been created with voice recognition software.� Occasional wrong word or��sound alike� substitutions may have occurred due to the inherent limitations of voice recognition software.
Discharge Plan
Departure
Patient Disposition: Admit
Date of Disposition: 04/24/24
Time of Disposition: 01:32
Admit to: Med/Surg
Presentation/result/management discussed w/ accepting MD/DO: Hospitalist
Patient with high blood pressure during this ER visit?: Yes
Condition: Good
Discharge Problem:
Abdominal pain, Nausea and vomiting
Prescriptions:
No Action
multivitamin Tablet
1 tab PO DAILY
fluticasone propion-salmeterol 250-50 mcg/dose blister with device
1 inh inhalation R BID
venlafaxine 75 mg capsule,extended release 24hr
75 mg PO DAILY
trazodone 50 mg Tablet
50 mg PO HS
cetirizine [Zyrtec] 10 mg Tablet
10 mg PO DAILY
liothyronine 5 mcg tablet
5 mcg PO DAILY
bisacodyl [Laxative (bisacodyl)] 5 mg tablet,delayed release (DR/EC)
5 mg PO DAILY PRN (Reason: constipation)
polyethylene glycol 3350 17 gram/dose powder
17 g PO DAILY
albuterol sulfate 90 mcg/actuation HFA aerosol inhaler
2 puff INHALATION R Q4 PRN (Reason: sob/wheezing)
progesterone micronized 100 mg capsule
200 mg PO DAILY
bupropion HCl 300 mg tablet extended release 24 hr
300 mg PO DAILY
cholecalciferol (vitamin D3) 25 mcg (1,000 unit) Tablet
25 mcg PO DAILY
estradiol [Yuvafem] 10 mcg tablet
10 mcg VAGINAL .2X WEEKLY
Wegovy 2.4 mg/0.75 mL pen injector
2.4 mg SC .WEEKLY *ON HOLD*
ondansetron 4 mg tablet,disintegrating
4 mg PO Q6H PRN (Reason: nausea and vomiting) Qty: 20 0RF
amoxicillin-pot clavulanate 875-125 mg tablet
1 tab PO Q12H Qty: 20 0RF
Referrals:
UNKNOWN - PT DOES,NOT KNOW [Family Provider] -
Interventions
Interventions:
*Risk Screen - Suicide Last Done: 04/23/24 22:51
*Neglect/Abuse Screening Last Done: 04/23/24 22:51
Discharge Date and Time
Print Language: PALESTINIAN
[2024-04-23 23:23] LABS: % Basophils 0.8 % (0-2); % Eosinophils 0.4 % (0-6); % Immature Granulocytes 0.5 % (0-0.5); % Lymphocytes 16.7 % (20.5-51.1); % Monocytes 4.9 % (1.7-9.3); % Neutrophils 76.7 % (42.2-75.2); Absolute Basophils 0.1 10^3/uL (0-0.2); Absolute Immature Granulocytes 0.1 10^3/uL (0-0.05); Absolute Lymphocytes 1.8 10^3/uL (1.2-3.4); Absolute Monocytes 0.5 10^3/uL (0.1-0.6); Absolute Neutrophils 8.1 10^3/uL (1.4-6.5); Hematocrit 37.4 % (37.0-47.0); Hemoglobin 13.7 g/dL (12.0-16.0); Mean Corp Hgb Conc. 36.6 g/dL (33.0-37.0); Mean Corpuscular Hgb 30.6 pg (27.0-31.0); Mean Corpuscular Volume 83.5 fL (81.0-99.0); Mean Platelet Volume 9.1 fL (7.4-10.4); Nucleated Red Blood Cells % 0 %; Platelet Count 407 10^3/uL (130-400); Red Blood Cell Count 4.48 10^6/uL (4.20-5.40); Red Cell Dist. Width 12.4 % (11.5-14.5); White Blood Cell Count 10.5 10^3/uL (4.8-10.8)
[2024-04-23 23:36] LABS: ALT (SGPT) 19 U/L (0-35); AST (SGOT) 31 U/L (14-36); Albumin 4.3 g/dl (3.5-5.0); Alkaline Phosphatase 73 U/L (38-126); Blood Urea Nitrogen 9 mg/dl (7-17); Calcium 9.8 mg/dl (8.4-10.2); Carbon Dioxide 18 mmol/L (22-30); Chloride 106 mmol/L (98-107); Glucose 135 mg/dl (70-99); Lipase 159 U/L (23-300); Potassium 3.4 mmol/L (3.5-5.1); Sodium 139 mmol/L (135-145); Total Bilirubin 0.8 mg/dl (0.2-1.3); Total Protein 7.2 g/dl (6.3-8.2); eGFR > 60.00
[2024-04-23] MEDS: DILAUDID 1 MG IV (23:40)
[2024-04-23] MEDS: NSS 1000 IV (23:42)
[2024-04-23 23:58] VITALS: BP 167/85
[2024-04-24] VITALS (7 sets, daily range): BP systolic 124–159; BP diastolic 74–86; BMI 22.8; BMI 22.5
[2024-04-24 00:07] LABS: Lactic Acid 2.1 mmol/L (0.7-2.0)
--- NOTE | 2024-04-24 03:15 | HPS.HSE ---
Addendum entered and electronically signed by Arturo Shepard MD 04/24/24 12:57:
CT AP w IV contrast
Mildly dilated loops of proximal to mid small bowel, with no evidence of a focal transition point. Administered oral contrast has passed into the right side of the colon. No findings to suggest significant bowel obstruction. Findings most likely
represent an adynamic ileus.
Status post cholecystectomy. Small amount of stranding soft tissue density at the cholecystectomy bed, improved from examination of April 20, 2024. No evidence for a collection to suggest an abscess.
Drainage catheter enters through the right lateral abdominal wall with tip within the pelvis. There is mild stranding soft tissue density adjacent to the catheter in the right upper quadrant, next to the right side of the colon. This appears
slightly improved from previous examination, suggesting a degree of inflammation, but with no evidence for a focal collection.
Trace pleural fluid bilaterally. Mild dependent atelectasis within the posterior lower lungs.
Original Note:
Family Physician
-
Family Physician: NOT KNOW UNKNOWN - PT DOES
Chief Complaint
-
recurrent abdominal pain and vomiting
History of Present Illness
59F POD8 cholecystectomy ( 04/16/24) in [place] with subsequent placement of LUÍS drain who was admitted to from04/20 - 04/22 evaluation for abrupt onset of abdominal pain with severe N and multiple vomiting concerning for small bowel enteritis associated
with partial SBO .
Further evaluated by Surgeon indicate no clinical or radiographic signs of bile leak
She is tolerated to advance diet and DC'd on 04/22. No pain upon DC'd
Retuned to ER at this hour with recurrent abd pain and vomiting.
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
ROS
Denies any fever, chills, chest pain, SOB, diarrhea, headache, urinary burning.
Medical History
Past Medical History
Past Medical History: Reports Asthma and Psychiatric (depression/anxiety )
Past Surgical History: Reports None
Social History
Tobacco: Non-smoker
Alcohol: None
Drug: None
Family History
Family History: Not pertinent
Allergies / Home Medications
Allergies reflects when Allergies were last updated in [facility].
Home Medications with original date entered in [facility]
Allergy/Medication List:
Allergies
Allergy/AdvReac Type Severity Reaction Status Date / Time
No Known Allergies Allergy Verified 04/20/24 20:55
Home Medications
albuterol sulfate 90 mcg/actuation aerosol inhaler 2 puff inhalation R Q4 PRN sob/wheezing 04/20/24
amoxicillin 875 mg-potassium clavulanate 125 mg tablet 1 tab PO Q12H 04/20/24
bisacodyl 5 mg tablet,delayed release (Laxative (bisacodyl)) 5 mg PO DAILY PRN constipation 04/20/24
bupropion HCl 300 mg 24 hr tablet, extended release 300 mg PO DAILY 04/20/24
cetirizine 10 mg tablet (Zyrtec) 10 mg PO DAILY 04/20/24
cholecalciferol (vitamin D3) 25 mcg (1,000 unit) tablet 25 mcg PO DAILY 04/20/24
estradiol 10 mcg vaginal tablet (Yuvafem) 10 mcg vaginal .2X WEEKLY 04/20/24
fluticasone 250 mcg-salmeterol 50 mcg/dose blistr powdr for inhalation 1 inh inhalation R BID 04/20/24
liothyronine 5 mcg tablet 5 mcg PO DAILY 04/20/24
multivitamin 1 tab PO DAILY 04/20/24
polyethylene glycol 3350 17 gram/dose oral powder 17 g PO DAILY 04/20/24
progesterone micronized 100 mg capsule 200 mg PO DAILY 04/20/24
semaglutide (weight loss) 2.4 mg/0.75 mL subcutaneous pen injector (Wegovy) 2.4 mg SC .WEEKLY *ON HOLD* 04/20/24
trazodone 50 mg tablet 50 mg PO HS 04/20/24
venlafaxine 75 mg capsule,extended release 24 hr 75 mg PO DAILY 04/20/24
Review of Systems
-
Constitutional: Reports No Symptoms
EENT: Reports No Symptoms
Respiratory: Reports No Symptoms
Cardiac: Reports No Symptoms
Abdomen/GI: Reports See HPI, Abdominal Pain, Nausea and Vomiting
: Reports No Symptoms
Musculoskeletal: Reports No Symptoms
Skin: Reports No Symptoms
Neurological: Reports No Symptoms
Endocrine: Reports No Symptoms
Hematologic/Lymphatic: Reports No Symptoms
Psych: Reports No Symptoms
Physical Exam
Vital Signs
Vital Signs
Temp Pulse Resp BP Pulse Ox
97.7 F 84 28 138/80 94
04/23/24 22:51 04/23/24 22:51 04/23/24 22:51 04/24/24 02:00 04/24/24 02:30
Physical Exam
General: Well Nourished and Appears in Distress (mild )
HEENT: NormoCephalic, Tracheostomy Collar and Other (R Eye prosthesis )
Respiratory: Clear
Cardiac: S1/S2 and Regular Rhythm
Breast: Deferred by me
GI: Soft, Non Tender and Other (LUÍS drain in place - )
Genito-urinary: Deferred by me
Musculoskeletal: No Edema
Skin: Warm and Dry
Neuro: AO x 3
Psych: Calm
Laboratory Results
-
04/23/24 23:17
04/23/24 23:17
Laboratory Results
Lactic Acid 2.1 mmol/L (0.7-2.0) H 04/23/24 23:44
Total Bilirubin 0.8 mg/dl (0.2-1.3) 04/23/24 23:17
AST 31 U/L (14-36) 04/23/24 23:17
ALT 19 U/L (0-35) 04/23/24 23:17
Alkaline Phosphatase 73 U/L (38-126) 04/23/24 23:17
Lipase 159 U/L (23-300) 04/23/24 23:17
Data Reviewed
-
Lab Data: Labs Reviewed by me
Old Records: Reviewed
Impression/Plan
-
Reviewed VS: unremarkable
Data
WCC 10.5
Hgb 13.7
Plt 407
K 3.4
CO2 18
LA 2.1
Pending PCT for sepsis
UA pending
BCx sent
04/20/24 CT Abd/pelvis W Iv Cont
1).There are mildly dilated loops of fluid-filled small bowel measuring up to 3.2 cm down to an area of small bowel wall thickening in the mid abdomen best seen on axial image 33, sagittal image 44 and coronal image 24. This may be a focal area of
small bowel enteritis associated with partial obstruction
2).There is cholecystectomy with a 3 x 1 cm fluid collection at the surgical bed which may be seroma or biloma
3). There is moderate ascites in the pelvis.
4). There is 2 cm hiatal hernia
5). Degenerative disc disease at L4-5
Last hospitalist admission: 04/20 - 04/22
ASSESSMENT & PLAN
Recurrent abdominal pain nausea vomiting
POD8 cholecystectomy ( 04/16/24) in [place] with subsequent placement of LUÍS drain
Post-op seroma with LUÍS drain in place
Of note: Recent DH from04/20 - 04/22 admission: for abrupt onset of abdominal pain with severe N and multiple vomiting concernign for small bowel enteritis associated with partial SBO. Further evaluated by Surgeon indicate no clinical or
radiographic signs of bile leak. She is tolerated to advnace diet and DC'd on 04/22.
- CT AP W IV contrast
- LUÍS drain is currently draining nonbilious and light serous fluid.
- clear diet
- IVF
- cont PO Augmentin
- GS consult
HX Asthma/COPD
- prn nebs/Fluticasone
HX Depression/anxiety
- continue Venlafaxine/Trazodone/Bupropion
Hypothyroidism on replacement
DVT Px: SQH
Code: Full code
IP MS
[2024-04-24] MEDS: NSS 1000 IV (05:16)
--- NOTE | 2024-04-24 06:35 | PTCARENOTE ---
Pt aaox3 able to make her needs known.Pt denies of any pain at this time,resting comfortably.Pt dressing changed at the LUÍS drain site.Pt encouraged to call for help as needed.Pt on clear liquids. Pt oriented to room & call pruitt in reach.Plan of care
continued.
[2024-04-24] MEDS: OMNIPAQUE 50 ML PO (08:17)
[2024-04-24] MEDS: CYTOMEL 5 MICROGRAM PO (08:19)
[2024-04-24] MEDS: HEPARIN 5000 UNITS SC ×2 (08:19→20:44)
[2024-04-24] MEDS: EFFEXOR XR 75 MG PO (08:19)
[2024-04-24] MEDS: WELLBUTRIN XL (24 hour extended release) 300 MG PO (08:19)
[2024-04-24] MEDS: ADVAIR HFA 115/21 MCG INHALER 2 PUFF INH ×2 (08:38→19:29)
[2024-04-24 09:03] LABS: Procalcitonin < 0.05 ng/ml (0.0-0.25)
[2024-04-24 10:55] LABS: Urine Albumin Negative (Neg - Trace); Urine Bilirubin Negative (Negative); Urine Character Clear (Clear); Urine Color Yellow; Urine Glucose Negative (Negative); Urine Ketone 2+ (Negative); Urine Leukocyte Trace (Negative); Urine Nitrite Negative (Negative); Urine Occult Blood Negative (Negative); Urine Specific Gravity 1.015 (<1.030); Urine Urobilinogen Negative (Neg - 1+)
[2024-04-24 11:33] LABS: Urine Amorphous Seen
[2024-04-24 11:34] LABS: Urine Red Blood Cell None Seen /HPF (0-2); Urine White Cell 0-2 /HPF (0-5)
[2024-04-24 11:37] LABS: Urine Bacteria Moderate (Negative)
--- NOTE | 2024-04-24 11:50 | W.PN.HOSP.TC ---
Addendum entered and electronically signed by Julio Sellers MD 04/24/24 12:09:
correction, will continue prn Dilaudid and not start prn MSO$
Original Note:
Today's Communication/Plan
-
change medications to IV, await input from surgery
Assessment / Plan
Assessment / Plan
Recurrent abdominal pain nausea vomiting
POD8 cholecystectomy ( 04/16/24) in [place], [place] with subsequent placement of LUÍS drain
Post-op seroma with LUÍS drain in place
Of note: Recent DH from 04/20 - 04/22 admission: for abrupt onset of abdominal pain with severe N and multiple vomiting concerning for small bowel enteritis associated with partial SBO. Further evaluated by Surgeon indicate no clinical or
radiographic signs of bile leak. She tolerated to advance diet and DC'd on 04/22.
- CT AP W IV contrast just completed
CT scan from 04/20: 1).There are mildly dilated loops of fluid-filled small bowel measuring up to 3.2 cm down to an area of small bowel wall thickening in the mid abdomen best seen on axial image 33, sagittal image 44 and coronal image 24. This
may be a focal area of small bowel enteritis associated with partial obstruction
2).There is cholecystectomy with a 3 x 1 cm fluid collection at the surgical bed which may be seroma or biloma
3). There is moderate ascites in the pelvis.
4). There is 2 cm hiatal hernia
5). Degenerative disc disease at L4-5
- LUÍS drain is currently draining nonbilious and light serous fluid.
- clear diet
- IVF
- change PO Augmentin to IV Unasyn as she has been having vomiting episodes
IV Zofran and MSO4 prn
- GS consult
HX Asthma/COPD
- prn nebs/Fluticasone
HX Depression/anxiety
- continue Venlafaxine/Trazodone/Bupropion
Hypothyroidism on replacement
DVT Px: SQH
Code: Full code
IP MS
Anticipated Discharge: 24 - 48 hours
Subjective/Interval History
-
Date of Service: April 24, 2024
Awake, alert, still with episodes of severe abd pain
Objective Data
-
Vital Signs:
Vital Signs
Temp Pulse Resp BP Pulse Ox
98.6 F 61 16 130/77 98
04/24/24 07:41 04/24/24 08:40 04/24/24 08:40 04/24/24 07:41 04/24/24 08:40
I&O
04/23/24 04/24/24 04/25/24
06:59 06:59 06:59
Output Total 40 / 40 30 / 30
Balance -40 / -40 -30 / -30
Review of Systems
-
History Source: Patient and Coordinated Provider
Constitutional: Denies Fever
EENT: Reports No Symptoms Reported
Respiratory: Reports No Symptoms
Cardiac: Reports No Symptoms
Abdomen/GI: Reports Abdominal Pain, Nausea and Vomiting
Genitourinary: Reports No Symptoms
Musculoskeletal: Reports No Symptoms
Neuro: Reports No Symptoms
Physical Exam
-
General: Well Developed, Well Nourished and No Apparent Distress
HEENT: Normocephalic, Atraumatic and Moist Mucous Membranes
Respiratory: Clear to Auscultation; Negative Wheezes, Rales or Rhonchi
Cardiac: Regular Rhythm and S1/S2
GI: Soft, Tender and Other (LUÍS drain in place); Negative Normal Bowel Sounds (hypoactive BS)
[2024-04-24] MEDS: D5/0.45%NSS with KCL 20 MEQ 1000 IV (13:01)
[2024-04-24] MEDS: ZOFRAN 4 MG IV ×2 (13:28)
[2024-04-24] MEDS: UNASYN IV ×2 (14:00→20:37)
--- NOTE | 2024-04-24 14:13 | CON.GS ---
Addendum entered and electronically signed by Loc Marie MD 04/24/24 15:58:
I saw and examined the patient independently.
The Surgical Endoscopist's note was reviewed and I agree with the note, assessment and plan except where noted below.
Comment: This is a 59-year-old female recent cholecystectomy April 16 for what was reported as gangrenous cholecystitis for which a drain was placed. She was seen earlier this week but ultimately discharged with the drain. She Mildred presents with
persistent abdominal pain and nausea. A repeat CT scan demonstrates no fluid collection, and a drain that is in the pelvis. She did get p.o. contrast which has made its way to the right colon. There is still some mildly dilated loops of bowel but
overall improving consistent with a postoperative ileus. Clinically she feels well, her lab work is unremarkable and her exam is reassuring.
LUÍS removed at bedside today.
Okay for clear liquids, advance to low-fat diet as able.
Okay to DC once on a low-fat diet. She will follow-up with her surgeon in [place].
Patient agreeable to plan of care above.
General surgery will continue to follow while inpatient.
Original Note:
Medical History
-
Chief Complaint: n/v
History of Present Illness:
Ms Sandoval is a 59 yo female who was recently admitted to [facility] in [place], [place] for cholecystitis with cholecystectomy preformed on April 16 and LUÍS drain left in place post operatively. She was discharged to home on 04/18 and notes she was
doing relatively well. She had no nausea and good post op pain control and was eating a light diet. As she was tolerating light foods and decided to travel down to [place] a few days after surgery to visit family with her sister driving for a
family gathering. She began having worsening abdominal pain with nausea and vomiting and sweats on the car ride down and was admitted to from 04/20-04/22 for management. Exam and imaging without concerning findings at that time and diet was able to
be advanced and tolerated. She was discharged, and now presenting once again overnight for interim development of abdominal pain with nausea and vomiting once again. Last BM was yesterday and small. She is having incisional discomfort, but it is
gradually improving without severe abdominal pain. LUÍS drain is in place draining light serous fluid.
Past Medical History
Past Medical History: Asthma and Psychiatric (anxiety/depression)
Past Surgical History: Cholecystectomy (04/16/24 in [facility], LUÍS still in place)
Social History
Tobacco: Non-Smoker
Alcohol: None
Family History
Family History: Reviewed & Not Pertinent
Allergies / Home Medications
Allergy/AdvReac Type Severity Reaction Status Date / Time
No Known Allergies Allergy Verified 04/23/24 22:54
�Medication �Instructions �Recorded �Confirmed �Type
albuterol sulfate 90 mcg/actuation 2 puff inhalation R Q4 PRN 04/20/24 04/24/24 History
aerosol inhaler sob/wheezing
bisacodyl 5 mg tablet,delayed 5 mg PO DAILY PRN constipation 04/20/24 04/24/24 History
release (Laxative (bisacodyl))
bupropion HCl 300 mg 24 hr tablet, 300 mg PO DAILY 04/20/24 04/24/24 History
extended release
cetirizine 10 mg tablet (Zyrtec) 10 mg PO DAILY 04/20/24 04/24/24 History
cholecalciferol (vitamin D3) 25 25 mcg PO DAILY 04/20/24 04/24/24 History
mcg (1,000 unit) tablet
estradiol 10 mcg vaginal tablet 10 mcg vaginal .2X WEEKLY 04/20/24 04/24/24 History
(Yuvafem)
fluticasone 250 mcg-salmeterol 50 1 inh inhalation R BID 04/20/24 04/24/24 History
mcg/dose blistr powdr for
inhalation
liothyronine 5 mcg tablet 5 mcg PO DAILY 04/20/24 04/24/24 History
multivitamin 1 tab PO DAILY 04/20/24 04/24/24 History
polyethylene glycol 3350 17 17 g PO DAILY 04/20/24 04/24/24 History
gram/dose oral powder
progesterone micronized 100 mg 200 mg PO DAILY 04/20/24 04/24/24 History
capsule
semaglutide (weight loss) 2.4 2.4 mg SC .WEEKLY *ON HOLD* 04/20/24 04/24/24 History
mg/0.75 mL subcutaneous pen
injector (Wegovy)
trazodone 50 mg tablet 50 mg PO HS 04/20/24 04/24/24 History
venlafaxine 75 mg capsule,extended 75 mg PO DAILY 04/20/24 04/24/24 History
release 24 hr
amoxicillin 875 mg-potassium 1 tab PO Q12H #20 tabs 04/22/24 04/24/24 Rx
clavulanate 125 mg tablet
ondansetron 4 mg disintegrating 4 mg PO Q6H PRN nausea and 04/22/24 04/24/24 Rx
tablet vomiting #20 tabs
Review of Systems
-
History Source: Patient
All other systems: Negative unless noted
A 10 point review of systems was completed, and was negative except as per HPI.
Physical Exam
Vital Signs
Temp Pulse Resp BP Pulse Ox
98.6 F 61 16 130/77 98
04/24/24 07:41 04/24/24 08:40 04/24/24 08:40 04/24/24 07:41 04/24/24 08:40
04/23/24 04/24/24 04/25/24
06:59 06:59 06:59
Actual Weight 69.059 kg
Body Mass Index (BMI) 22.5
Lab Results
04/23/24 23:17
WBC 10.5 10^3/uL (4.8-10.8) 04/23/24 23:17
Hgb 13.7 g/dL (12.0-16.0) D 04/23/24 23:17
Hct 37.4 % (37.0-47.0) 04/23/24 23:17
Plt Count 407 10^3/uL (130-400) H D 04/23/24 23:17
Abs Immat Gran (auto) 0.1 10^3/uL (0-0.05) H 04/23/24 23:17
Neutrophils % 76.7 % (42.2-75.2) H 04/23/24 23:17
Physical Exam
General: Well Developed and Well Nourished
HEENT: Moist Mucous Membranes
Respiratory: Non Labored Respirations
GI: Soft, Non Distended, Tender (mild expected incisional tenderness, COAT EXAMINER) and Other (LUÍS with SSF (nonbilious))
Skin: Warm, Dry and Other (incisions healing well with intact glue)
Neuro: Awake, Alert and AO x 3
Psych: Calm
Assessment / Plan
-
59 yo female s/p cholecystectomy in [facility] on 04/16 who presented to 04/20-04/22 with post op nausea and vomiting and worsening pain with diet advancement and tolerance that admission and subsequent discharge after resolution of symptoms who is
now presenting again for nausea/vomiting. She has been on ABX since just prior to surgery and discharged on PO Augmentin from [place], for total of 8-9 day course. She has been passing small bm's since surgery, last BM yesterday. Perioperative LUÍS
present with SSF noted. Incisions healing well with erythema/drainage
CT this admission with passage of previously administered PO contrast from 04/20 into colon and some mildly dilated loops of small bowel indicating ileus/delayed bowel motility but no signs of obstruction. LUÍS drain present and terminating within the
pelvis not the operative bed. No abscess. No clinical or radiographic signs of bile leak. LUÍS drain is nonbilious with light serous fluid
AFVSS. LFT's wnl. No leukocytosis. Lactic mildly elevated on presentation, repeat pending
--Obtain records from [place]
--Clear liquids today and advance diet as tolerated
--IVF until tolerating PO
--LUÍS removed at bedside
--ABX as per primary team
--OP f/u with primary surgeon upon return to [place]
--- NOTE | 2024-04-24 15:36 | CM ---
Patient seen bedside, initial assessment completed. Patient resides in [place], currently visiting her sister who resides in a one story home. Patient denies DME, VN, or SNF. Patient [facility]. CM will continue to follow for all discharge
planning needs.
Plan: Home no needs anticipated.
[2024-04-24 17:19] LABS: Blood Urea Nitrogen 3 mg/dl (7-17); Calcium 9.2 mg/dl (8.4-10.2); Carbon Dioxide 25 mmol/L (22-30); Chloride 105 mmol/L (98-107); Estimated Creatinine Clearance 89 ml/min; Glucose 111 mg/dl (70-99); Potassium 2.8 mmol/L (3.5-5.1); Sodium 138 mmol/L (135-145); eGFR > 60.00
[2024-04-24] MEDS: FLUSH (NSS) 2 FLUSH IV (20:38)
[2024-04-24 22:24] LABS: Lactic Acid 0.8 mmol/L (0.7-2.0)
[2024-04-24] MEDS: DESYREL 50 MG PO (22:59)
[2024-04-25] MEDS: ZOFRAN 4 MG IV (01:23)
[2024-04-25] MEDS: D5/0.45%NSS with KCL 20 MEQ 1000 IV ×2 (01:23→13:00)
[2024-04-25] MEDS: FLUSH (NSS) 3 FLUSH IV (01:24)
[2024-04-25] MEDS: UNASYN IV ×4 (01:24→20:08)
[2024-04-25] MEDS: FLUSH (NSS) 2 FLUSH IV (02:14)
[2024-04-25] MEDS: COMPAZINE 5 MG IV (02:14)
[2024-04-25] MEDS: DILAUDID 1 MG IV (02:34)
--- NOTE | 2024-04-25 03:21 | PTCARENOTE ---
Patient woke from sleep with c/o severe nausea. Zofran administered with no relief. TT to [facility], covering house. Compazine as ordered with some relief. Patient then admitted to pain to center of abdomen. Dilaudid as per prn order. Patient
currently sleeping comfortably.
[2024-04-25] MEDS: ADVAIR HFA 115/21 MCG INHALER 2 PUFF INH ×2 (07:30→20:01)
[2024-04-25 07:35] VITALS: BP 100/61
[2024-04-25 07:40] LABS: % Basophils 0.8 % (0-2); % Eosinophils 1.8 % (0-6); % Immature Granulocytes 0.3 % (0-0.5); % Lymphocytes 28.1 % (20.5-51.1); % Monocytes 6.5 % (1.7-9.3); % Neutrophils 62.5 % (42.2-75.2); Absolute Basophils 0.1 10^3/uL (0-0.2); Absolute Eosinophils 0.1 10^3/uL (0-0.7); Absolute Monocytes 0.5 10^3/uL (0.1-0.6); Absolute Neutrophils 4.5 10^3/uL (1.4-6.5); Hematocrit 32.8 % (37.0-47.0); Hemoglobin 11.1 g/dL (12.0-16.0); Mean Corp Hgb Conc. 33.8 g/dL (33.0-37.0); Mean Corpuscular Hgb 30.2 pg (27.0-31.0); Mean Corpuscular Volume 89.4 fL (81.0-99.0); Mean Platelet Volume 9.2 fL (7.4-10.4); Nucleated Red Blood Cells % 0 %; Platelet Count 348 10^3/uL (130-400); Red Blood Cell Count 3.67 10^6/uL (4.20-5.40); Red Cell Dist. Width 13.1 % (11.5-14.5); White Blood Cell Count 7.2 10^3/uL (4.8-10.8)
[2024-04-25 08:20] LABS: Blood Urea Nitrogen 3 mg/dl (7-17); Calcium 8.8 mg/dl (8.4-10.2); Carbon Dioxide 26 mmol/L (22-30); Chloride 106 mmol/L (98-107); Estimated Creatinine Clearance 78 ml/min; Glucose 108 mg/dl (70-99); Potassium 3.7 mmol/L (3.5-5.1); Sodium 138 mmol/L (135-145); eGFR > 60.00
[2024-04-25] MEDS: WELLBUTRIN XL (24 hour extended release) 300 MG PO (09:02)
[2024-04-25] MEDS: CYTOMEL 5 MICROGRAM PO (09:02)
[2024-04-25] MEDS: HEPARIN 5000 UNITS SC ×2 (09:02→20:07)
[2024-04-25] MEDS: EFFEXOR XR 75 MG PO (09:02)
--- NOTE | 2024-04-25 10:36 | W.PN.GS2 ---
Today's Communication / Plan
-
-- Low fat diet
-- Miralax daily
-- Tentative plan for DC tomorrow pending progression
Assessment / Plan
-
Patient is a 59 yo F s/p laparoscopic cholecystectomy with drain placement on 04/16 in [facility] p/w abdominal pain, nausea, vomiting.
Repeat CT with no acute findings. No postoperative fluid collection, pneumatosis, free air. Operative drain removed. Mildly dilated small bowel, contrast progression to the colon, consistent with possible postoperative ileus. No plans for
indication for surgical intervention at this time. Trial of low-fat diet. MiraLAX added for chronic constipation.
-- Low fat diet
-- Miralax daily
-- No plans for surgical intervention at this time
-- Tentative plan for DC tomorrow pending progression
Subjective Data
-
Date of Service: April 25, 2024
Mild nausea yesterday evening requiring Zofran. No episodes of vomiting. Currently asymptomatic. Denies worsening abdominal pain. Passing flatus, no BM. Reports chronic issues with constipation dating back preoperatively. She actually
underwent a colonoscopy for workup of these issues the day prior to her admission for cholecystectomy. No reports of chronic nausea. Afebrile.
Objective Data
-
Intake and Output
04/24/24 04/25/24 04/26/24
06:59 06:59 06:59
Intake Total 1420 / 1420 1140 / 1140
Output Total 40 / 40 30 / 30
Balance -40 / -40 1390 / 1390 1140 / 1140
Intake:
Oral fluids 1300 / 1300
IV fluids (Total) 120 / 120 900 / 900
IV piggybacks 240 / 240
Output:
Drain Output (Total) 40 / 40 30 / 30
Right Abdomen Chris-Purcell 40 / 40 30 / 30
Other:
Number of approximated MODERATE 1
amounts of urine
Number of approximated LARGE 1
amounts of urine
Vital Signs
Temp Pulse Resp BP Pulse Ox
98.7 F 74 16 100/61 98
04/25/24 07:35 04/25/24 07:35 04/25/24 07:35 04/25/24 07:35 04/25/24 07:35
Lab Results
04/25/24 07:17
04/25/24 07:17
Calcium 8.8 mg/dl (8.4-10.2) 04/25/24 07:17
Total Bilirubin 0.8 mg/dl (0.2-1.3) 04/23/24 23:17
AST 31 U/L (14-36) 04/23/24 23:17
ALT 19 U/L (0-35) 04/23/24 23:17
Alkaline Phosphatase 73 U/L (38-126) 04/23/24 23:17
Total Protein 7.2 g/dl (6.3-8.2) D 04/23/24 23:17
Albumin 4.3 g/dl (3.5-5.0) 04/23/24 23:17
Physical Exam
-
Gen: NAD
Abd: soft, NT, mild/moderate distension, mild tympany, non-peritoneal, incisions c/d/i - no erythema, ecchymosis or drainage
--- NOTE | 2024-04-25 10:38 | CM ---
Patient seen bedside, reports no needs to CM at this time. Patient hopeful to discharge tomorrow. CM will continue to follow for all discharge planning needs.
Plan; home no needs anticipated.
[2024-04-25] MEDS: MIRALAX 17 GRAMS PO (11:50)
--- NOTE | 2024-04-25 14:01 | W.PN.HOSP.TC ---
Today's Communication/Plan
-
diet advanced
slow IVF
Assessment / Plan
Assessment / Plan
Recurrent abdominal pain nausea vomiting
POD8 cholecystectomy (04/16/24) in [place], [place] with subsequent placement of LUÍS drain
Post-op seroma with LUÍS drain in place
Of note: Recent DH from 04/20 - 04/22 admission: for abrupt onset of abdominal pain with severe N and multiple vomiting concerning for small bowel enteritis associated with partial SBO. Further evaluated by Surgeon indicate no clinical or
radiographic signs of bile leak. She tolerated to advance diet and DC'd on 04/22.
- CT AP W IV contrast just completed
CT scan from 04/20: 1).There are mildly dilated loops of fluid-filled small bowel measuring up to 3.2 cm down to an area of small bowel wall thickening in the mid abdomen best seen on axial image 33, sagittal image 44 and coronal image 24. This
may be a focal area of small bowel enteritis associated with partial obstruction
2).There is cholecystectomy with a 3 x 1 cm fluid collection at the surgical bed which may be seroma or biloma
3). There is moderate ascites in the pelvis.
4). There is 2 cm hiatal hernia
5). Degenerative disc disease at L4-5
- LUÍS drain removed
- clear diet advanced to low fat
- IVF to continue for now
- change PO Augmentin to IV Unasyn as she has been having vomiting episodes
IV Zofran and Dilaudid prn (last dose of Dilaudid was at 02:34
- GS consult
HX Asthma/COPD
- prn nebs/Fluticasone
HX Depression/anxiety
- continue Venlafaxine/Trazodone/Bupropion
Hypothyroidism on replacement
DVT Px: SQH
Code: Full code
IP MS
Anticipated Discharge: 24 - 48 hours
Subjective/Interval History
-
Date of Service: April 25, 2024
Feeling a little better today, no BM yet
Objective Data
-
Labs:
Laboratory Results
04/25/24
07:17
WBC 7.2
Hgb 11.1 L
Hct 32.8 L
Plt Count 348
Sodium 138
Potassium 3.7 D
Chloride 106
Carbon Dioxide 26
BUN 3 L
Creatinine 0.8
Glucose 108 H
Calcium 8.8
Vital Signs:
Vital Signs
Temp Pulse Resp BP Pulse Ox
98.7 F 74 16 100/61 98
04/25/24 07:35 04/25/24 07:35 04/25/24 07:35 04/25/24 07:35 04/25/24 07:35
I&O
04/24/24 04/25/24 04/26/24
06:59 06:59 06:59
Intake Total 1420 / 1420 1140 / 1140
Output Total 40 / 40 30 / 30
Balance -40 / -40 1390 / 1390 1140 / 1140
Review of Systems
-
History Source: Patient and Coordinated Provider
Constitutional: Denies Fever
EENT: Reports No Symptoms Reported
Respiratory: Reports No Symptoms
Cardiac: Reports No Symptoms
Abdomen/GI: Reports Abdominal Pain (decreased), Nausea (better) and Vomiting (resolved)
Genitourinary: Reports No Symptoms
Musculoskeletal: Reports No Symptoms
Neuro: Reports No Symptoms
Physical Exam
-
General: Well Developed, Well Nourished and No Apparent Distress
HEENT: Normocephalic, Atraumatic and Moist Mucous Membranes
Respiratory: Clear to Auscultation; Negative Wheezes, Rales or Rhonchi
Cardiac: Regular Rhythm and S1/S2
GI: Soft, Tender (decreased) and Other (LUÍS drain removed); Negative Normal Bowel Sounds (hypoactive BS)
[2024-04-25 15:45] VITALS: BP 124/70
[2024-04-25] MEDS: DESYREL 50 MG PO (21:17)
[2024-04-25 23:04] VITALS: BP 100/53
[2024-04-26] MEDS: D5/0.45%NSS with KCL 20 MEQ IV (00:47)
[2024-04-26] MEDS: FLUSH (NSS) 1 FLUSH IV (02:50)
[2024-04-26] MEDS: UNASYN IV ×2 (02:50→09:24)
[2024-04-26] MEDS: D5/0.45%NSS with KCL 20 MEQ 1000 IV (06:08)
[2024-04-26] MEDS: ADVAIR HFA 115/21 MCG INHALER 2 PUFF INH (07:42)
[2024-04-26 07:50] VITALS: BP 112/73
[2024-04-26] MEDS: HEPARIN 5000 UNITS SC (09:24)
[2024-04-26] MEDS: EFFEXOR XR 75 MG PO (09:24)
[2024-04-26] MEDS: MIRALAX 17 GRAMS PO (09:24)
[2024-04-26] MEDS: WELLBUTRIN XL (24 hour extended release) 300 MG PO (09:24)
[2024-04-26] MEDS: CYTOMEL 5 MICROGRAM PO (09:24)
--- NOTE | 2024-04-26 10:47 | W.PN.HOSP.TC ---
Today's Communication/Plan
-
dc to home
Assessment / Plan
Assessment / Plan
Recurrent abdominal pain nausea vomiting
POD8 cholecystectomy (04/16/24) in [place], [place] with subsequent placement of LUÍS drain
Post-op seroma with LUÍS drain in place
Of note: Recent DH from 04/20 - 04/22 admission: for abrupt onset of abdominal pain with severe N and multiple vomiting concerning for small bowel enteritis associated with partial SBO. Further evaluated by Surgeon indicate no clinical or
radiographic signs of bile leak. She tolerated to advance diet and DC'd on 04/22.
- CT from 04/24: Mildly dilated loops of proximal to mid small bowel, with no evidence of a focal transition point. Administered oral contrast has passed into the right side of the colon. No findings to suggest significant bowel obstruction. Findings
most likely represent an adynamic ileus.
Status post cholecystectomy. Small amount of stranding soft tissue density at the cholecystectomy bed, improved from examination of April 20, 2024. No evidence for a collection to suggest an abscess.
Drainage catheter enters through the right lateral abdominal wall with tip within the pelvis. There is mild stranding soft tissue density adjacent to the catheter in the right upper quadrant, next to the right side of the colon. This appears
slightly improved from previous examination, suggesting a degree of inflammation, but with no evidence for a focal collection.
Trace pleural fluid bilaterally. Mild dependent atelectasis within the posterior lower lungs.
CT scan from 04/20: 1).There are mildly dilated loops of fluid-filled small bowel measuring up to 3.2 cm down to an area of small bowel wall thickening in the mid abdomen best seen on axial image 33, sagittal image 44 and coronal image 24. This
may be a focal area of small bowel enteritis associated with partial obstruction
2).There is cholecystectomy with a 3 x 1 cm fluid collection at the surgical bed which may be seroma or biloma
3). There is moderate ascites in the pelvis.
4). There is 2 cm hiatal hernia
5). Degenerative disc disease at L4-5
- LUÍS drain removed
- clear diet advanced to low fat
- IVF to continue for now
- change PO Augmentin to IV Unasyn as she has been having vomiting episodes
IV Zofran and Dilaudid prn (last dose of Dilaudid was at 02:34
- GS consult appreciated, cleared to be discharged by Dr. Lieberman
HX Asthma/COPD
- prn nebs/Fluticasone
HX Depression/anxiety
- continue Venlafaxine/Trazodone/Bupropion
Hypothyroidism on replacement
DVT Px: SQH
Code: Full code
dc to home
see dictated noteMore than 30 minutes spent in discharge including
Final examination of the patient
Summarizing hospital stay
Instructions for continuing care to all relevant caregivers
Preparation of discharge records, prescriptions, and referral forms
Total time spent (in minutes): 45
Anticipated Discharge: Today
Subjective/Interval History
-
Date of Service: April 26, 2024
Feels better, tolerating diet
Objective Data
-
Vital Signs:
Vital Signs
Temp Pulse Resp BP Pulse Ox
98.4 F 67 16 112/73 96
04/26/24 07:50 04/26/24 07:50 04/26/24 07:50 04/26/24 07:50 04/26/24 07:50
I&O
04/25/24 04/26/24 04/27/24
06:59 06:59 06:59
Intake Total 1420 / 1420 2700 / 2700
Output Total 30 / 30
Balance 1390 / 1390 2700 / 2700
Review of Systems
-
History Source: Patient and Coordinated Provider
Constitutional: Denies Fever
EENT: Reports No Symptoms Reported
Respiratory: Reports No Symptoms
Cardiac: Reports No Symptoms
Abdomen/GI: Reports Abdominal Pain (markedly decreased), Nausea (better/resolved) and Vomiting (resolved)
Genitourinary: Reports No Symptoms
Musculoskeletal: Reports No Symptoms
Neuro: Reports No Symptoms
Physical Exam
-
General: Well Developed, Well Nourished and No Apparent Distress
HEENT: Normocephalic, Atraumatic and Moist Mucous Membranes
Respiratory: Clear to Auscultation; Negative Wheezes, Rales or Rhonchi
Cardiac: Regular Rhythm and S1/S2
GI: Soft, Normal Bowel Sounds (BS normal), Tender (decreased, minimal) and Other (LUÍS drain removed)
[2024-04-26 11:05] VITALS: BP 114/68
--- NOTE | 2024-04-26 12:32 | CM ---
Patient seen bedside, reports she is being discharged today. Patient confirms she has transportation home, denies any needs from CM. CM will continue to follow for all discharge planning needs.
Plan; home no needs.
--- NOTE | 2024-04-26 15:28 | W.DS.TRANS ---
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
-
Discharge Instructions:
Discharge Diagnosis/Procedures Post Op abdominal pain
Diet Low Residue
Activity No strenuous activity
Driving Restrictions As prior to admission
Bathing Restrictions None
Instructions:
Stand-Alone Forms:
Changes to Home Medications: No
Discharge Medications:
DC Medications w/original date entered in [employer] [facility]
albuterol sulfate 90 mcg/actuation aerosol inhaler 2 puff inhalation R Q4 PRN sob/wheezing 04/20/24
bisacodyl 5 mg tablet,delayed release (Laxative (bisacodyl)) 5 mg PO DAILY PRN constipation 04/20/24
bupropion HCl 300 mg 24 hr tablet, extended release 300 mg PO DAILY 04/20/24
cetirizine 10 mg tablet (Zyrtec) 10 mg PO DAILY 04/20/24
cholecalciferol (vitamin D3) 25 mcg (1,000 unit) tablet 25 mcg PO DAILY 04/20/24
estradiol 10 mcg vaginal tablet (Yuvafem) 10 mcg vaginal .2X WEEKLY 04/20/24
fluticasone 250 mcg-salmeterol 50 mcg/dose blistr powdr for inhalation 1 inh inhalation R BID 04/20/24
liothyronine 5 mcg tablet 5 mcg PO DAILY 04/20/24
multivitamin 1 tab PO DAILY 04/20/24
polyethylene glycol 3350 17 gram/dose oral powder 17 g PO DAILY 04/20/24
progesterone micronized 100 mg capsule 200 mg PO DAILY 04/20/24
semaglutide (weight loss) 2.4 mg/0.75 mL subcutaneous pen injector (Wegovy) 2.4 mg SC .WEEKLY *ON HOLD* 04/20/24
trazodone 50 mg tablet 50 mg PO HS 04/20/24
venlafaxine 75 mg capsule,extended release 24 hr 75 mg PO DAILY 04/20/24
amoxicillin 875 mg-potassium clavulanate 125 mg tablet 1 tab PO Q12H #20 tabs 04/22/24
ondansetron 4 mg disintegrating tablet 4 mg PO Q6H PRN nausea and vomiting #20 tabs 04/22/24
Home Medication Changes
Pending Results: No
== END 2024-04-26 13:51 | disposition home or self-care (01) | DRG 394 ==
LOC: 4 EAST ACU 03:33
PROVIDERS: Clinical Nurse Specialist Family Health; ADMITTING PHYSICIAN Internal Medicine; ATTENDING PHYSICIAN Internal Medicine; CONSULT PHYSICIAN Surgery; EMERGENCY PHYSICIAN Emergency Medicine
DX: K91.89 Other postprocedural complications and disorders of digestive system (principal); J98.11 Atelectasis; K56.0 Paralytic ileus; L76.34 Postprocedural seroma of skin and subcutaneous tissue following other procedure; R10.9 Unspecified abdominal pain; E03.9 Hypothyroidism, unspecified; G35 Multiple sclerosis; R11.2 Nausea with vomiting, unspecified
CPT/HCPCS: 74018; 74177; 80048; 80053; 81003; 81015; 83605; 83690; 84145; 85025; 87040; 87086; 94640; 96361; 96374; 96375; 99285; Q9967

== ENCOUNTER 2024-04-30 06:21 | Emergency (ER) | payer OTHER, SELFPAY ==
[2024-04-30 06:55] VITALS: BMI 24.3
--- NOTE | 2024-04-30 06:56 | ED.GENMED ---
History of Present Illness
General
Chief Complaint: Abdominal Symptoms
Source: patient
Exam Limitations: none
Time Seen by Provider: 04/30/24 06:52
History of Present Illness
History of Present Illness:
See MDM
Past History
Past History
ED Past Medical History: Asthma, Psychiatric (Depression) and Other (UTI )
ED Past Surgical History: Cholecystectomy, Gynecological (Uterine ablation, Tubal, ), Orthopedic (Bilateral shoulder rotator cuff, right wrist surgery, ), Urological (Urethra sling) and Other (Right eye prosthetic)
Social History
Tobacco: Non-smoker
Alcohol: Occasional
Personal:
Living: with family (living with sister at this time)
Phy Exam
Physical Exam
Physical Exam:
See MDM
Course
Orders/Labs/Results
Orders:
Orders
04/30/24 06:53
Complete Blood Count/With Diff Urgent
Comprehensive Metabolic Panel Urgent
Lactic Acid Urgent
Lipase Urgent
Blood Culture Urgent
GRICELDA Source: Blood/Venous
Specimen Description:
Blood Culture Urgent
GRICELDA Source: Blood/Venous
Specimen Description:
04/30/24 06:55
0.9% Sodium Chloride 1000 ml [Nss] 1,000 ml IV BOLUS
HYDROmorphone [Dilaudid] 1 mg IV NOW STA
Ondansetron Injectable [Zofran] 4 mg IV NOW STA
04/30/24 06:56
CT Abd/pelvis W Iv Cont Urgent
Comment:
Reason For Exam: recent janet with post op seroma, abd pain, N/V
Abnormal Lab Results
04/30/24
06:53
Plt Count 435 H D 10^3/uL
(130-400)
Absolute Neuts (auto) 7.6 H 10^3/uL
(1.4-6.5)
Neutrophils % 80.0 H %
(42.2-75.2)
Lymphocytes % 16.4 L %
(20.5-51.1)
Carbon Dioxide 21 L mmol/L
(22-30)
Glucose 138 H mg/dl
(70-99)
Calcium 10.6 H mg/dl
(8.4-10.2)
04/30/24 06:53
04/30/24 06:53
Vital Signs
Initial and Last Documented VS:
Initial Vital Signs
Temp Pulse Resp Pulse Ox
97.8 F 69 22 100
04/30/24 06:29 04/30/24 06:29 04/30/24 06:29 04/30/24 06:29
Last Documented Vital Signs
Temp Pulse Resp BP Pulse Ox
97.8 F 69 22 152/86 92
04/30/24 06:29 04/30/24 06:29 04/30/24 06:29 04/30/24 08:00 04/30/24 08:00
MDM/Problems Addressed
Differential Diagnosis Includes:
HPI and MDM Narrative:
59-year-old female presenting with recurrent abdominal pain and vomiting. Patient was recently discharged a few days ago. Patient had recent cholecystectomy several weeks ago which was complicated with postop seroma requiring LUÍS drainage. The LUÍS
drain was recently removed. Symptoms have recurred. She has diarrhea, nausea, vomiting and abdominal pain.
Went into the room, patient is moaning and appears to be in acute distress. Will give Dilaudid and Zofran and repeat CT
Physical exam
General: Uncomfortable, moaning
HEENT: protecting airway
Neck: appears supple
CV: No evidence of cyanosis
Resp: No accessory muscle use
Abd: Non-distended. Mid abdominal pain. Laparoscopic incision sites clean and intact. LUÍS site clean and intact
Extremities: No deformities
Neuro: alert
Psych: Anxious
Skin: Intact
Problems Addressed including Acute and Chronic Conditions affecting care:
1. Abdominal pain
Acuity: acute
Prognosis: stable
Details: Given her recent surgery with postop complications, will repeat CT. Patient requiring Dilaudid and Zofran and fluids
Updates
CT shows no mass or fluid collection or infection. It does reference concern for partial small bowel obstruction versus ileus. At this point, patient feeling much better and is tolerating p.o. We discussed admission versus discharge. Patient
states she is going to try to go home. Her sister is at bedside who will care for her. Both understand return precautions
Differential Diagnosis (but not limited to): Small bowel obstruction, postop infection, postop seroma
Testing considered: Right upper quadrant ultrasound
Drug therapy (if applicable): OTC meds, please see d/c instruction regarding Rx drugs
Amount and/or Complexity of Data Reviewed
Clinical info obtained from: Patient
External data reviewed: Recent admission requiring LUÍS drainage for postop seroma. LUÍS drain has since been removed
Labs I independently reviewed (but not limited to): White blood cell count normal
Radiology: The CT scan was personally and independently reviewed. In addition, official CT report reviewed.
Pulse Ox: not hypoxic
EKG independently reviewed: N/A
Instructor Bridge: N/A
Critical Care: N/A
Risk of Complication:
Social Determinants of health: Good social support
Discussed with other providers: N/A
Escalation of Care includes Admit/Obs: After being observed in the Emergency Department, pt stable for discharge.
Occasional wrong word or 'sound a like' substitutions may have occurred due to the inherent limitations of voice recognition software. Read the chart carefully and recognize, using context, where substitutions have occurred.
*Critical Care Note
Total Time (30-74mins, 75-104mins- exclusive of procedures): Not Applicable
ED Attending Note
-
Portions of this chart may have been created with voice recognition software.� Occasional wrong word or��sound alike� substitutions may have occurred due to the inherent limitations of voice recognition software.
Discharge Plan
Departure
Patient Disposition: Home (Routine Discharge)
Date of Disposition: 04/30/24
Time of Disposition: 09:41
Patient with high blood pressure during this ER visit?: Yes
Discharge Problem:
Ileus
Instructions: Postoperative ileus
Prescriptions:
New
diclofenac potassium 50 mg tablet
50 mg PO BID Qty: 20 0RF
dicyclomine 10 mg capsule
10 mg PO BID Qty: 20 0RF
metoclopramide HCl [Reglan] 10 mg tablet
10 mg PO Q8HPRN PRN (Reason: nausea and vomiting) Qty: 14 0RF
prochlorperazine [Compazine] 25 mg suppository
25 mg AK BID PRN (Reason: Nausea) Qty: 12 0RF
No Action
multivitamin Tablet
1 tab PO DAILY
fluticasone propion-salmeterol 250-50 mcg/dose blister with device
1 inh inhalation R BID
venlafaxine 75 mg capsule,extended release 24hr
75 mg PO DAILY
trazodone 50 mg Tablet
50 mg PO HS
cetirizine [Zyrtec] 10 mg Tablet
10 mg PO DAILY
liothyronine 5 mcg tablet
5 mcg PO DAILY
bisacodyl [Laxative (bisacodyl)] 5 mg tablet,delayed release (DR/EC)
5 mg PO DAILY PRN (Reason: constipation)
polyethylene glycol 3350 17 gram/dose powder
17 g PO DAILY
albuterol sulfate 90 mcg/actuation HFA aerosol inhaler
2 puff INHALATION R Q4 PRN (Reason: sob/wheezing)
progesterone micronized 100 mg capsule
200 mg PO DAILY
bupropion HCl 300 mg tablet extended release 24 hr
300 mg PO DAILY
cholecalciferol (vitamin D3) 25 mcg (1,000 unit) Tablet
25 mcg PO DAILY
estradiol [Yuvafem] 10 mcg tablet
10 mcg VAGINAL .2X WEEKLY
Wegovy 2.4 mg/0.75 mL pen injector
2.4 mg SC .WEEKLY *ON HOLD*
Patient Comments:
as per pt on hold
ondansetron 4 mg tablet,disintegrating
4 mg PO Q6H PRN (Reason: nausea and vomiting) Qty: 20 0RF
amoxicillin-pot clavulanate 875-125 mg tablet
1 tab PO Q12H Qty: 20 0RF
Referrals:
UNKNOWN - PT DOES,NOT KNOW [Family Provider] -
Stand Alone Forms: Return to Work
Activity Restrictions/Additional Instructions:
Please take the diclofenac and the Bentyl twice a day for your pain and gas. If you develop nausea, you can take the Reglan up to 3 times a day as needed. Do not take this with the Compazine rectal suppository. If your nausea is more substantial
and you are worried you are going to throw up, take the suppository up to twice a day instead of taking the Reglan.
Since you are traveling on Wednesday, I do recommend that you take the diclofenac and Bentyl and rectal suppository before getting in the car.
Please return for worsening symptoms.
Interventions
Interventions:
*Risk Screen - Suicide Last Done: 04/30/24 06:29
*General Assessment Last Done: 04/30/24 06:29
*Neglect/Abuse Screening Last Done: 04/30/24 06:29
ED- Fall Risk Assessment Last Done: 04/30/24 06:55
*ED COVID-19 Vaccine History Last Done: 04/30/24 06:55
KL-Yodpkj-Doclwlecor Assessment Last Done: 04/30/24 06:55
Discharge Date and Time
Print Language: WOLOF
[2024-04-30] MEDS: NSS 1000 IV (07:00)
[2024-04-30] MEDS: ZOFRAN 4 MG IV (07:01)
[2024-04-30] MEDS: DILAUDID 1 MG IV (07:01)
[2024-04-30 07:10] LABS: % Basophils 0.9 % (0-2); % Eosinophils 0.4 % (0-6); % Immature Granulocytes 0.3 % (0-0.5); % Lymphocytes 16.4 % (20.5-51.1); Absolute Basophils 0.1 10^3/uL (0-0.2); Absolute Lymphocytes 1.6 10^3/uL (1.2-3.4); Absolute Monocytes 0.2 10^3/uL (0.1-0.6); Absolute Neutrophils 7.6 10^3/uL (1.4-6.5); Hematocrit 41.3 % (37.0-47.0); Hemoglobin 14.1 g/dL (12.0-16.0); Mean Corp Hgb Conc. 34.1 g/dL (33.0-37.0); Mean Corpuscular Hgb 30.1 pg (27.0-31.0); Mean Corpuscular Volume 88.2 fL (81.0-99.0); Mean Platelet Volume 9.5 fL (7.4-10.4); Nucleated Red Blood Cells % 0 %; Platelet Count 435 10^3/uL (130-400); Red Blood Cell Count 4.68 10^6/uL (4.20-5.40); Red Cell Dist. Width 12.7 % (11.5-14.5); White Blood Cell Count 9.5 10^3/uL (4.8-10.8)
[2024-04-30 07:16] LABS: ALT (SGPT) 18 U/L (0-35); AST (SGOT) 30 U/L (14-36); Alkaline Phosphatase 78 U/L (38-126); Blood Urea Nitrogen 8 mg/dl (7-17); Calcium 10.6 mg/dl (8.4-10.2); Carbon Dioxide 21 mmol/L (22-30); Chloride 104 mmol/L (98-107); Estimated Creatinine Clearance 67 ml/min; Glucose 138 mg/dl (70-99); Lipase 147 U/L (23-300); Potassium 4.1 mmol/L (3.5-5.1); Sodium 138 mmol/L (135-145); Total Bilirubin 0.9 mg/dl (0.2-1.3); Total Protein 7.9 g/dl (6.3-8.2); eGFR > 60.00
[2024-04-30 07:17] VITALS: BP 157/88
[2024-04-30 07:17] LABS: Lactic Acid 1.9 mmol/L (0.7-2.0)
[2024-04-30 08:00] VITALS: BP 152/86
== END 2024-04-30 10:00 | disposition home or self-care (01) ==
LOC: EMR 06:21
PROVIDERS: EMERGENCY PHYSICIAN Student in an Organized Health Care Education/Training Program
DX: K56.7 Ileus, unspecified (principal); R03.0 Elevated blood-pressure reading, without diagnosis of hypertension
CPT/HCPCS: 99285; 96374; 96375; 96361; 74177; 80053; 83605; 83690; 85025; 87040; Q9967

== ENCOUNTER → 2024-12-22 15:20 | Outpatient (REF) | payer OTHER, SELFPAY | LOC: HWWDC 15:20 | PROVIDERS: ATTENDING PHYSICIAN Internal Medicine | DX: Z12.31 Encounter for screening mammogram for malignant neoplasm of breast (principal) | CPT/HCPCS: 77063; 77067 ==

== ENCOUNTER → 2025-03-06 08:13 | Outpatient (REF) | payer OTHER, SELFPAY | LOC: WDC 08:13 | PROVIDERS: ATTENDING PHYSICIAN Internal Medicine | DX: R92.2 Inconclusive mammogram (principal) | CPT/HCPCS: 76641 ==

== ENCOUNTER → 2025-07-23 13:34 | Outpatient (REF) | payer OTHER, SELFPAY | LOC: RCS 13:34 | PROVIDERS: ATTENDING PHYSICIAN Obstetrics & Gynecology Gynecology | DX: Z01.810 Encounter for preprocedural cardiovascular examination (principal) | CPT/HCPCS: 93005 ==

== ENCOUNTER → 2025-08-03 08:45 | Outpatient (REF) | payer OTHER, SELFPAY | LOC: CLAB 08:45 | PROVIDERS: ATTENDING PHYSICIAN Obstetrics & Gynecology Gynecology | DX: N87.1 Moderate cervical dysplasia (principal) | CPT/HCPCS: 88307 ==